=== PATIENT | female | born 1960 | race Caucasian/White ===

== ENCOUNTER → 2016-08-01 | Outpatient (CLI) | payer BC ==
--- NOTE | 2016-08-02 07:48 | MM ---
Reason for exam: screening (asymptomatic). Last mammogram was performed 1 year and 9 months ago. History: Patient is postmenopausal. Family history of breast cancer in aunt. Benign stereotactic core biopsy of the left breast, January 15, 2003. Core biopsy of the left breast. Physical Findings: A clinical breast exam by your physician is recommended on an annual basis and results should be correlated with mammographic findings. MG Screening Mammo w CAD Bilateral CC and MLO view(s) were taken. XCCL view(s) were taken of the right breast. Prior study comparison: November 05, 2014, bilateral MG screening mammo w CAD. April 17, 2012, bilateral digital screening mammo w/CAD. There are scattered fibroglandular densities. There is no discrete abnormality. No significant changes when compared with prior studies. ASSESSMENT: Negative, BI-RAD 1 RECOMMENDATION: Routine screening mammogram of both breasts in 1 year.
== END | disposition home or self-care (01) ==
LOC: RADMAMWWP 06:48
PROVIDERS: ATTEND Internal Medicine
DX: Z12.31 Encounter for screening mammogram for malignant neoplasm of breast (principal)

== ENCOUNTER → 2017-06-08 | Outpatient (CLI) | payer BC ==
--- NOTE | 2017-06-08 15:07 | US ---
EXAMINATION TYPE: US venous doppler duplex LE LT DATE OF EXAM: 06/08/2017 2:49 PM COMPARISON: NONE CLINICAL HISTORY: Swelling of lower leg R22.42. h/o DVT within left leg 4 years ago along with PE's, no SOB or chest pain today, swelling in left leg, started thinners last night per her physician SIDE PERFORMED: Left TECHNIQUE: The lower extremity deep venous system is examined utilizing real time linear array sonog joaquina with graded compression, doppler sonography and color-flow sonography. VESSELS IMAGED: External Iliac Vein (EIV) Common Femoral Vein Deep Femoral Vein Greater Saphenous Vein * Femoral Vein Popliteal Vein Small Saphenous Vein * Proximal Calf Veins (* superficial vessels) Left Leg: Appearance of chronic thrombus within not fully compressible femoral, popiteal vein and si ngle proximal calf vein, internal echos seen with thready flow within [place] femoral vein and god col or fill within popiteal vein tech impression given to Dr Patel IMPRESSION: Incompletely occlusive thrombi within the femoral, popliteal, and proximal calf veins of the left lower extremity are seen suggestive of chronic renal organizing thrombus in this patient wi th a history of left lower extremity thrombus.
== END | disposition home or self-care (01) ==
LOC: RADUSWWP 14:17
PROVIDERS: ATTEND Internal Medicine
DX: I82.432 Acute embolism and thrombosis of left popliteal vein (principal); I82.412 Acute embolism and thrombosis of left femoral vein; I82.492 Acute embolism and thrombosis of other specified deep vein of left lower extremity

== ENCOUNTER 2018-03-06 11:06 | Day surgery (SDC) | payer BC ==
--- NOTE | 2018-03-06 08:36 | P.GSHP ---
History of Present Illness H&P Date: 03/06/18 CHIEF COMPLAINT: GERD and colon screen HISTORY OF PRESENT ILLNESS: The patient is a 57-year-old female who presents with gastroesophageal reflux disease and need for colon screen. Upper and lower endoscopy were offered for further evaluation and management. PAST MEDICAL HISTORY: Please see list. PAST SURGICAL HISTORY: Please see list. MEDICATIONS: Please see list. ALLERGIES: Please see list. SOCIAL HISTORY: No illicit drug use FAMILY HISTORY: No reports of Crohn disease or ulcerative colitis. REVIEW OF ORGAN SYSTEMS: CONSTITUTIONAL: No reports of fevers or chills. GI: Denies any blood in stools or constipation. PHYSICAL EXAM: VITAL SIGNS: Stable GENERAL: Well-developed pleasant in no acute distress. HEENT: No scleral icterus. Extraocular movements grossly intact. Moist buccal mucosa. NECK: Supple without lymphadenopathy. CHEST: Unlabored respirations. Equal bilateral excursions. CARDIOVASCULAR: Regular rate and rhythm. Distal 2+ pulses. ABDOMEN: Soft, nondistended. MUSCULOSKELETAL: No clubbing, cyanosis, or edema. ASSESSMENT: 1. Gastroesophageal reflux disease 2. Colon screen. PLAN: 1. Recommend proceeding with an upper and lower endoscopy Past Medical History Past Medical History: Deep Vein Thrombosis (DVT), GERD/Reflux, Pulmonary Embolus (PE) Additional Past Medical History / Comment(s): DVT LT KNEE, AND PE 02/2013. VARICOSE VEINS. EDEMA LT LEG. SINUS INFECTIONS, POLYPS. History of Any Multi-Drug Resistant Organisms: None Reported Past Surgical History: Bariatric Surgery, Cholecystectomy, Hernia Repair, Tubal Ligation Additional Past Surgical History / Comment(s): VARICOSE VEINS STRIPPED. 2012 GASTRIC SLEEVE (CURRENT SURGEON DR. BROCK) Past Anesthesia/Blood Transfusion Reactions: Previous Problems w/ Anesthesia Additional Past Anesthesia/Blood Transfusion Reaction / Comment(s): HX WAKING UP IN SURGERY. Past Psychological History: No Psychological Hx Reported Smoking Status: Never smoker Past Alcohol Use History: None Reported Past Drug Use History: None Reported - Past Family History Sister(s) Family Medical History: Cancer, Deep Vein Thrombosis (DVT) Brother(s) Family Medical History: Cancer Medications and Allergies Home Medications Medication Instructions Recorded Confirmed Type Biotin 5,000 mg PO DAILY 04/07/15 02/20/18 History Cholecalciferol [Vitamin D3] 2,000 unit PO DAILY 08/08/15 02/20/18 History Cinnamon Bark [Cinnamon] 500 mg PO DAILY 08/08/15 02/20/18 History Dexlansoprazole [Dexilant] 60 mg PO DAILY 08/08/15 02/20/18 History L.acidoph,Paracasei, B.lactis 1 cap PO DAILY 08/08/15 02/20/18 History [Probiotic] Allergies Allergy/AdvReac Type Severity Reaction Status Date / Time clarithromycin [From Biaxin] Allergy Rash/Hives Verified 02/20/18 17:50 daptomycin Allergy MUSCLES Verified 02/20/18 17:50 "CURLED UP" Sulfa (Sulfonamide Allergy Rash/Hives Verified 02/20/18 17:50 Antibiotics) ciprofloxacin [From Cipro] AdvReac Unknown Verified 02/20/18 17:50 ciprofloxacin HCl AdvReac Unknown Verified 02/20/18 17:50 [From Cipro]
[2018-03-06 12:07] VITALS: RESP 16; TEMP 97.6
[2018-03-06 12:14] VITALS: BMI 40.7
[2018-03-06] MEDS ORDERED: LACTATED RINGERS 1,000 ML IV ONE (13:22)
[2018-03-06] MEDS ORDERED: LIDOCAINE 1% 20 ML VIAL (10MG/ML) FOR IV START INTRADERMA ONE (13:23)
[2018-03-06] MEDS ORDERED: LIDOCAINE 1% INJ 10MG/ML (20 ML MDV) ONE (13:26)
[2018-03-06] MEDS ORDERED: PROPOFOL 10 MG/ML 20 ML VIAL IV ONE (13:26)
--- NOTE | 2018-03-06 13:42 | P.PCN ---
Date of Procedure: 03/06/18 Description of Procedure: PREOPERATIVE DIAGNOSIS: Status post sleeve gastrectomy. Gastroesophageal reflux disease. Epigastric abdominal pain. Personal history of H. pylori gastritis POSTOPERATIVE DIAGNOSIS: Status post sleeve gastrectomy. Gastroesophageal reflux disease. Epigastric abdominal pain. Personal history of H. pylori gastritis Diaphragmatic hiatal hernia without obstruction. Chronic superficial gastritis. OPERATION: Esophagogastroduodenoscopy with cold forceps biopsies along the antrum. SURGEON: Yenifer Maurer MD ANESTHESIA: MAC. INDICATIONS: The patient is a 57-year-old female who presents with a history of sleeve gastrectomy with abdominal pain. benefits and risks of the procedure were described. Informed consent was obtained. DESCRIPTION: The patient was brought into the endoscopy suite and laid in the left lateral decubitus position. An Olympus gastroscope was passed along the posterior oropharynx down to the distal esophagus where the squamocolumnar junction was at 33 centimeters from the incisors remarkable for chronic erosive esophagitis, LA grade A without ulceration. The stomach was entered where she had a 3-cm hiatal hernia with a diaphragmatic hiatus found at 35 cm. The sleeve reservoir was not enlarged prohibiting retroflexion of the scope. Tertiary contractions were from the esophagus. Encroachment along the angularis incisura was confirmed. Chronic gastritis was found along the antrum with cold biopsies obtained. The first through third portion of the duodenum was examined and unremarkable. The stomach was desufflated. The patient tolerated the procedure well. FINDINGS: No acute ulceration found along her sleeve. Encroachment along angularis incisura confirmed with mild deformity of sleeve gastrectomy Squamocolumnar junction at 33 cm from the incisors. Diaphragmatic hiatus at 35 cm. Gastric reservoir within normal limits. Hiatal hernia 2 cm, fixed. LA grade A erosive esophagitis. No active duodenitis. Chronic gastritis. RECOMMENDATIONS: Upper endoscopy as needed. May benefit from antireflux operation.
--- NOTE | 2018-03-06 13:55 | P.PCN ---
Date of Procedure: 03/06/18 Description of Procedure: PREOPERATIVE DIAGNOSIS: Colonoscopy screening. History of Hemoccult positive stools POSTOPERATIVE DIAGNOSIS: Colonoscopy screening. History of Hemoccult positive stools Sigmoid diverticulosis. External hemorrhoids OPERATION: Colonoscopy to the ileocecal valve and appendiceal orifice. SURGEON: Yenifer Maurer MD. ANESTHESIA: MAC. INDICATIONS: The patient is a 57-year-old female who presents for colonoscopy screening. Benefits and risks were described and informed consent was obtained. DESCRIPTION OF PROCEDURE: The patient had undergone Gatorade, MiraLAX and Dulcolax prep. She had been brought into the operating room and laid in the left lateral decubitus position. After adequate intravenous sedation, the rectum was examined with 2% lidocaine jelly. No external hemorrhoids were encountered. The rectal tone was within normal limits. No lesions were palpated in the rectal vault. An Olympus colonoscope was advanced until the ileocecal valve and appendiceal orifice were clearly viewed. The prep was poor with retained solid stools from diverticulosis. Moderate sigmoid diverticulosis was encountered. No colonic polyps were found. No evidence of focal colitis was found. Retroflexion of the scope demonstrated grade 1 internal hemorrhoids without active bleeding or inflammation. The colon was desufflated. The patient had tolerated the procedure well. Withdrawal time was over 6 minutes. FINDINGS: Internal hemorrhoids, grade 1 External prolapsed hemorrhoids, grade 2 No arteriovenous malformations. No adenomatous polyps. Poor colonic prep Sigmoid diverticulosis No focal colitis. RECOMMENDATIONS: Lower endoscopy in 5 years, 2022 Plan - Discharge Summary New Discharge Prescriptions: No Action Biotin 5,000 mg PO DAILY Dexlansoprazole [Dexilant] 60 mg PO DAILY Cholecalciferol [Vitamin D3] 2,000 unit PO DAILY L.acidoph,Paracasei, B.lactis [Probiotic] 1 cap PO DAILY Discharge Medication List Biotin 5,000 mg PO DAILY 04/07/15 [History] Cholecalciferol [Vitamin D3] 2,000 unit PO DAILY 08/08/15 [History] Dexlansoprazole [Dexilant] 60 mg PO DAILY 08/08/15 [History] L.acidoph,Paracasei, B.lactis [Probiotic] 1 cap PO DAILY 08/08/15 [History]
[2018-03-06] MEDS ORDERED: LACTATED RINGERS 1,000 ML IV SCH (14:01)
[2018-03-06 14:13] VITALS: BP 119/68; PULSE 78
== END 2018-03-06 14:45 | disposition home or self-care (01) ==
LOC: ORWHC2ENDO 11:06
PROVIDERS: ATTEND Surgery Plastic and Reconstructive Surgery
DX: Z12.11 Encounter for screening for malignant neoplasm of colon (principal); K29.50 Unspecified chronic gastritis without bleeding; K57.30 Diverticulosis of large intestine without perforation or abscess without bleeding; K22.10 Ulcer of esophagus without bleeding; K21.9 Gastro-esophageal reflux disease without esophagitis; K44.9 Diaphragmatic hernia without obstruction or gangrene; K64.0 First degree hemorrhoids; Z98.84 Bariatric surgery status; K64.1 Second degree hemorrhoids; Z86.718 Personal history of other venous thrombosis and embolism; Z86.711 Personal history of pulmonary embolism; Z79.899 Other long term (current) drug therapy; Z88.1 Allergy status to other antibiotic agents; Z88.2 Allergy status to sulfonamides
CPT/HCPCS: 88305; 43239; J2001; J2704; G0121; 45378

== ENCOUNTER → 2018-04-24 | Outpatient (CLI) | payer BC ==
[2018-04-24 17:44] VITALS: BP 138/85; PULSE 58; RESP 16; TEMP 97.7; BMI 40.3
--- NOTE | 2018-04-24 17:52 | P.PN ---
Subjective Progress Note Date: 04/24/18 HPI: Complication from sleeve with leak. She had at EGD showing distortion of sleeve. ABDOMEN: Soft peritinotis. PLAN: 1. EGD reviewed 2. Labs reviewed 3. Need CT scan for distortion of anatomy, complications of sleeve and left upper quadrant Objective - Vital Signs Vital signs: Vital Signs Temp 97.7 F 04/24/18 17:41 Pulse 58 L 04/24/18 17:41 Resp 16 04/24/18 17:41 BP 138/85 04/24/18 17:41 Pulse Ox Intake & Output 04/23/18 04/24/18 04/24/18 18:59 06:59 18:59 Weight 113.398 kg
== END | disposition home or self-care (01) ==
LOC: BARWHC3 15:54
PROVIDERS: ATTEND Surgery Plastic and Reconstructive Surgery
DX: K95.89 Other complications of other bariatric procedure (principal); K65.9 Peritonitis, unspecified; Z98.84 Bariatric surgery status
CPT/HCPCS: 99211

== ENCOUNTER → 2018-05-08 | Outpatient (CLI) | payer BC ==
--- NOTE | 2018-05-09 08:19 | CT ---
EXAMINATION TYPE: CT abdomen pelvis w con DATE OF EXAM: 05/08/2018 HISTORY: Abdominal pain with nausea. Abnormal EGD. Diverticulosis of the large intestine. CT DLP: 1697mGycm Automated Exposure Control for Dose Reduction was Utilized. CONTRAST: CT scan of the abdomen and pelvis is performed with IV Contrast, patient injected with 100 mL of Isov ue 300. Patient was unable to complete the entirety of the proximal due to gastric sleeve COMPARISON: 11/14/2012. FINDINGS: LUNG BASES: No significant abnormality is appreciated. LIVER/GB: Hepatic parenchyma is diffusely hypoattenuated in comparison to that of the spleen, most co mmonly seen in hepatic steatosis. This finding limits evaluation for hepatic masses. No gross evidenc e of hepatic mass is seen. No intrahepatic biliary ductal dilatation. Gallbladder surgically absent. PANCREAS: There is mild pancreatic parenchymal atrophy without ductal dilatation. SPLEEN: No significant abnormality is seen. ADRENALS: No significant abnormality is seen. KIDNEYS: No significant abnormality is seen. BOWEL: Gastric sleeve has been performed. No extravasation is seen. Moderate hiatal hernia is present . Numerous colonic diverticuli are seen predominating within the sigmoid colon. No dilated large or s mall bowel is noted. Oral contrast does not extend to the colon, limiting evaluation. UTERUS/ADNEXA: No gross abnormality seen. LYMPH NODES: No greater than 1cm abdominal or pelvic lymph nodes are appreciated. However, there is a prominent 8 mm aortocaval lymph node on series 3 image 48. This lymph node is overall similar to the exam of 11/14/2012 and therefore favored to be benign. OSSEOUS STRUCTURES: Moderate multilevel degenerative changes of the spine are seen. Complete interver tebral disc space loss is seen at L2-L3. OTHER: There is a small amount of air seen within the urinary bladder. This could relate to recent in strumentation, cystitis, or fistula. No gross evidence of colovesical fistula is seen on today's exam ination. There is a small fat filled umbilical hernia present. IMPRESSION: 1. Air within the urinary bladder that could relate to urinary tract infection (correlation with urin alysis is recommended), recent instrumentation (correlate with any recent Baxter catheter placement), or fistula although no gross evidence of colovesicular fistula seen on today's examination. 2. Numerous colonic diverticula without pericolonic fat stranding. 3. Postsurgical changes of sleeve gastrectomy with moderate hiatal hernia. 4. Hepatic steatosis.
== END | disposition home or self-care (01) ==
LOC: RADCTMAIN 15:29
PROVIDERS: ATTEND Surgery Plastic and Reconstructive Surgery
DX: K57.30 Diverticulosis of large intestine without perforation or abscess without bleeding (principal); K44.9 Diaphragmatic hernia without obstruction or gangrene; K76.0 Fatty (change of) liver, not elsewhere classified; Z98.84 Bariatric surgery status
CPT/HCPCS: 74177; Q9967

== ENCOUNTER → 2018-05-22 | Outpatient (CLI) | payer BC ==
[2018-05-22 12:24] VITALS: BP 127/80; PULSE 64; RESP 16; TEMP 97.8; BMI 40.5
--- NOTE | 2018-05-22 12:35 | P.PN ---
Subjective Progress Note Date: 05/22/18 DATE OF SERVICE: 05/22/2018 CHIEF COMPLAINT: Complications from sleeve gastrectomy HISTORY OF PRESENT ILLNESS: Radha Espinal is a 57-year-old female who comes with previous history of sleeve gastrectomy. She has history of complication from sleeve with leak. She was placed on medications for her reflux disease and at this time is responding well. She reports severe gastroesophageal reflux disease and wants to feel well again. Her highest weight was 307 pounds. Her lowest weight was 215 pounds. Today she comes in weighing 250 pounds from 249 pounds, 1 months ago. She has 1 pound weight gain in 1 month. At height of 5 feet 6 inches, her ideal body weight is 154 pounds. Her highest weight was 307 pounds. Her body mass index highest was 49.7. Today her BMI is 40.5. Lifetime weight loss is 57 pounds. Percent excess weight loss is 37% PAST MEDICAL HISTORY: 1. Morbid obesity due to excess calories 2. Body mass index of 49.7, initial 3. Osteoarthritis of the knees. 4. Gastroesophageal reflux disease 5. Osteoarthritis of the lower back. 6. Hypertensive heart disease. PAST SURGICAL HISTORY: 1. Sleeve gastrectomy 2. Tubal ligation 3. Cholecystectomy 5. Varicose vein stripping HOME MEDICATIONS: ALLERGIES: Medications and Allergies Home Medications Medication Instructions Recorded Confirmed Type Biotin 5,000 mg PO DAILY 04/07/15 02/20/18 History Cholecalciferol [Vitamin D3] 2,000 unit PO DAILY 08/08/15 02/20/18 History Cinnamon Bark [Cinnamon] 500 mg PO DAILY 08/08/15 02/20/18 History Dexlansoprazole [Dexilant] 60 mg PO DAILY 08/08/15 02/20/18 History L.acidoph,Paracasei, B.lactis 1 cap PO DAILY 08/08/15 02/20/18 History [Probiotic] Allergies Allergy/AdvReac Type Severity Reaction Status Date / Time clarithromycin [From Biaxin] Allergy Rash/Hives Verified 02/20/18 17:50 daptomycin Allergy MUSCLES Verified 02/20/18 17:50 "CURLED UP" Sulfa (Sulfonamide Allergy Rash/Hives Verified 02/20/18 17:50 Antibiotics) ciprofloxacin [From Cipro] AdvReac Unknown Verified 02/20/18 17:50 ciprofloxacin HCl AdvReac Unknown Verified 02/20/18 17:50 [From Cipro] SOCIAL HISTORY: No past tobacco use. FAMILY HISTORY: No family history of ulcerative colitis disease or Crohn's disease. Family history of morbid obesity. No lupus in the family. No reports of stomach or esophageal cancer. Her grandfather had colon cancer. REVIEW OF ORGAN SYSTEMS: CONSTITUTIONAL: At height of 5 feet 6 inches, her ideal body weight is 154 pounds. Her highest weight was 307 pounds. Her body mass index highest was 49.7. HEENT: Denies any active troubles with vision or hearing. No troubles with swallowing. ENDOCRINE: No diabetes. No hypothyroidism. CARDIOVASCULAR: No reports of palpitations or heart attacks or chest pain. RESPIRATORY: Past history of pulmonary embolism including DVT GI: Denies any bright red blood per rectum. No diarrhea. Has GERD. MUSCULOSKELETAL: Has lower back pain and joint pain. Has osteoarthritis of the knees. History of bilateral lower extremity edema. NEURO: No headaches. No seizure disorders. PSYCH: No depression. No suicidal ideation. RHEUMATOLOGIC: No lupus. No rheumatoid arthritis. HEMATOLOGIC: Denies any abnormal bleeding or bruising. Has personal history of DVTs. SKIN: No rash. No skin cancer. PHYSICAL EXAM: VITAL SIGNS: Height 5 foot 6 inches, weight 250 pounds. BMI 40.5 Vital Signs Temp 97.8 F 05/22/18 12:19 Pulse 64 05/22/18 12:19 Resp 16 05/22/18 12:19 BP 127/80 05/22/18 12:19 Pulse Ox Intake & Output 05/22/18 05/23/18 05/23/18 18:59 06:59 18:59 Weight 113.852 kg GENERAL: Well-developed in no acute distress. HEENT: No scleral icterus. Extraocular movements grossly intact. Hears conversational speech. No nasal drainage. NECK: Supple without lymphadenopathy. CHEST: Nonlabored respirations with equal bilateral excursions. CARDIOVASCULAR: Regular rate and regular rhythm. Distal 2+ pulses. ABDOMEN: Soft and without peritinotis. MUSCULOSKELETAL: No clubbing, cyanosis. Gross strength 5/5 distal lower extremities. NEURO: No focal or lateralizing signs. Cranial nerves 2 through 12 grossly within normal limits. PSYCH: Appropriate affect. Alert and oriented to person, place and time. SKIN: Good skin turgor. Well perfused. STUDIES: CT of the abdomen and pelvis reviewed with imaging the confirms incarcerated hiatal hernia alongside sleeve gastrectomy LABS: Reviewed showing low Zinc, Vitamin D. ASSESSMENT: 1. Morbid obesity due to excess calories 2. Body mass index of 49.7, initial to 40.4 3. Osteoarthritis of the knees. 4. Gastroesophageal reflux disease 5. Osteoarthritis of the lower back. 6. Hypertensive heart disease. 7. Complications of sleeve gastrectomy 8. Epigastric abdominal pain 9. Left upper quadrant abdominal pain. 10. Hiatal hernia 11. History of blood clots 12. Zinc deficiency 13. Vitamin D deficiency PLAN: 1. She has moderate scarring and for any future surgeries, she will need extensive lysis of adhesions. 2. Recommend hiatal hernia repair for symptomatic and severe gastroesophageal reflux disease. 3. She is intermediate to high risk of complications from past history of intra- abdomnial sepsis, multiple abdominal surgeries, and previous history of DVTs 4. Will need DVT prophylaxis. 5. Antibiotic prophylaxis. 6. Two week high protein low carb diet to address hepatomegaly. 7. In the interim, continue medications for gastroesophageal reflux disease. Objective - Vital Signs Vital signs: Vital Signs Temp 97.8 F 05/22/18 12:19 Pulse 64 05/22/18 12:19 Resp 16 05/22/18 12:19 BP 127/80 05/22/18 12:19 Pulse Ox Intake & Output 05/21/18 05/22/18 05/22/18 18:59 06:59 18:59 Weight 113.852 kg
== END | disposition home or self-care (01) ==
LOC: BARWHC3 11:26
PROVIDERS: ATTEND Surgery Plastic and Reconstructive Surgery
DX: K95.89 Other complications of other bariatric procedure (principal); K21.9 Gastro-esophageal reflux disease without esophagitis; E66.01 Morbid (severe) obesity due to excess calories; M17.0 Bilateral primary osteoarthritis of knee; M47.9 Spondylosis, unspecified; I11.9 Hypertensive heart disease without heart failure; R10.12 Left upper quadrant pain; K44.9 Diaphragmatic hernia without obstruction or gangrene; E60 Dietary zinc deficiency; E55.9 Vitamin D deficiency, unspecified; Z98.84 Bariatric surgery status; Z90.49 Acquired absence of other specified parts of digestive tract; Z86.718 Personal history of other venous thrombosis and embolism; Z98.51 Tubal ligation status; Z68.41 Body mass index [BMI] 40.0-44.9, adult; Z79.899 Other long term (current) drug therapy; Z88.1 Allergy status to other antibiotic agents; Z88.2 Allergy status to sulfonamides
CPT/HCPCS: 99211

== ENCOUNTER → 2018-06-03 | Outpatient (CLI) | payer BC ==
[2018-06-03 12:06] VITALS: BMI 40.4
== END ==
LOC: BARWHC3 08:50
PROVIDERS: ATTEND Surgery Plastic and Reconstructive Surgery
DX: E66.01 Morbid (severe) obesity due to excess calories (principal); Z68.41 Body mass index [BMI] 40.0-44.9, adult
CPT/HCPCS: 97804

== ENCOUNTER → 2018-07-04 | Outpatient (CLI) | payer BC ==
[2018-07-04 08:59] LABS: Basophils % (A) 1 %; Eosinophils # (A) 0.1 k/uL (0-0.7); Eosinophils % (A) 2 %; HCT 37.4 % (34.0-46.0); HGB 11.7 gm/dL (11.4-16.0); Lymphocytes # (A) 0.6 k/uL (1.0-4.8); Lymphocytes % (A) 18 %; MCH 27.4 pg (25.0-35.0); MCHC 31.3 g/dL (31.0-37.0); MCV 87.5 fL (80.0-100.0); Mean Platelet Volume 7.2; Monocytes # (A) 0.3 k/uL (0-1.0); Monocytes % (A) 7 %; Neutrophils # (A) 2.4 k/uL (1.3-7.7); Neutrophils % (A) 70 %; Platelet Count 201 k/uL (150-450); RBC 4.28 m/uL (3.80-5.40); RDW 14.2 % (11.5-15.5); WBC 3.5 k/uL (3.8-10.6)
[2018-07-04 09:01] LABS: ALT 28 U/L (9-52); AST 32 U/L (14-36); Albumin 4.2 g/dL (3.5-5.0); Alkaline Phosphatase 74 U/L (38-126); Anion Gap 9 mmol/L; Blood Urea Nitrogen 29 mg/dL (7-17); Calcium 9.5 mg/dL (8.4-10.2); Carbon Dioxide 26 mmol/L (22-30); Chloride 106 mmol/L (98-107); Glucose 85 mg/dL (74-99); Potassium 4.1 mmol/L (3.5-5.1); Sodium 141 mmol/L (137-145); Total Bilirubin 0.7 mg/dL (0.2-1.3); Total Protein 7.2 g/dL (6.3-8.2)
== END | disposition home or self-care (01) ==
LOC: LABPAT 08:11
PROVIDERS: ATTEND Surgery Plastic and Reconstructive Surgery
DX: Z01.818 Encounter for other preprocedural examination (principal); Z01.812 Encounter for preprocedural laboratory examination
CPT/HCPCS: 36415; 80053; 85025; 86850; 86900; 86901; 93005

== ENCOUNTER 2018-07-15 07:42 | Inpatient (IN) | payer BC ==
--- NOTE | 2018-07-15 06:30 | P.GSHP ---
History of Present Illness H&P Date: 07/15/18 CHIEF COMPLAINT: Paraesophageal hiatal hernia with gastroesophageal reflux disease. HISTORY OF PRESENT ILLNESS: The patient is a 57-year-old female who presents with paraesophageal hiatal hernia. She has completed an esophageal manometry including upper endoscopy workup. Now she presents for surgical intervention. PAST MEDICAL HISTORY: Please see list. PAST SURGICAL HISTORY: Please see list. MEDICATIONS: Please see list. ALLERGIES: Please see list. SOCIAL HISTORY: No illicit drug use FAMILY HISTORY: No reports of Crohn disease or ulcerative colitis. REVIEW OF ORGAN SYSTEMS: CONSTITUTIONAL: No reports of fevers or chills. GI: Denies any blood in stools or constipation. PHYSICAL EXAM: VITAL SIGNS: Stable GENERAL: Well-developed pleasant and in no acute distress. HEENT: No scleral icterus. Extraocular movements grossly intact. Moist buccal mucosa. NECK: Supple without lymphadenopathy. CHEST: Unlabored respirations. Equal bilateral excursions. CARDIOVASCULAR: Regular rate and rhythm. Distal 2+ pulses. ABDOMEN: Soft, nondistended. No peritoneal signs. MUSCULOSKELETAL: No clubbing, cyanosis, or edema. SKIN: Well-perfused. Good skin turgor. MANOMETRY: Shows no evidence of achalasia or scleroderma. ASSESSMENT: 1. Diaphragmatic paraesophageal hiatal hernia with severe gastroesophageal reflux disease. PLAN: 1. Recommend proceeding with a robotic paraesophageal hiatal hernia with possible mesh. 2. Benefits and risks of surgical intervention was discussed including possibility of open technique. 3. Inpatient hospitalization recommended of 2 nights 4. DVT prophylaxis. 5. Antibiotic prophylaxis. Past Medical History Past Medical History: Deep Vein Thrombosis (DVT), GERD/Reflux, Pulmonary Embolus (PE) Additional Past Medical History / Comment(s): DVT LT KNEE, AND PE 02/2013. VARICOSE VEINS. EDEMA LT LEG. SINUS INFECTIONS, POLYPS. History of Any Multi-Drug Resistant Organisms: None Reported Past Surgical History: Bariatric Surgery, Cholecystectomy, Hernia Repair, Tubal Ligation Additional Past Surgical History / Comment(s): VARICOSE VEINS STRIPPED. 2012 GASTRIC SLEEVE (CURRENT SURGEON DR. BROCK) Past Anesthesia/Blood Transfusion Reactions: Previous Problems w/ Anesthesia Additional Past Anesthesia/Blood Transfusion Reaction / Comment(s): HX WAKING UP IN SURGERY. Smoking Status: Never smoker - Past Family History Sister(s) Family Medical History: Cancer, Deep Vein Thrombosis (DVT) Brother(s) Family Medical History: Cancer Medications and Allergies Home Medications Medication Instructions Recorded Confirmed Type Biotin 5,000 mg PO DAILY 04/07/15 06/04/18 History Cholecalciferol [Vitamin D3] 2,000 unit PO DAILY 08/08/15 06/04/18 History Dexlansoprazole [Dexilant] 60 mg PO DAILY 08/08/15 06/04/18 History L.acidoph,Paracasei, B.lactis 1 cap PO DAILY 08/08/15 06/04/18 History [Probiotic] Cyanocobalamin [Vitamin B-12 1,000 mg IM DIRECTED 04/26/18 06/04/18 History Injection] Turmeric Root Extract [Turmeric] 500 mg PO DAILY 04/26/18 06/04/18 History Vits A,C,E/Lutein/Minerals 1 each PO DAILY 04/26/18 06/04/18 History [Ocuvite with Lutein Tablet] Zinc 50 mg PO DAILY 04/26/18 06/04/18 History Cephalexin [Keflex] 500 mg PO Q6HR 05/22/18 06/04/18 History Allergies Allergy/AdvReac Type Severity Reaction Status Date / Time clarithromycin [From Biaxin] Allergy Rash/Hives Verified 07/08/18 12:17 daptomycin Allergy MUSCLES Verified 07/08/18 12:17 "CURLED UP" Sulfa (Sulfonamide Allergy Rash/Hives Verified 07/08/18 12:17 Antibiotics)
[~2018-07-15 07:42] MED LIST: CHLORHEXIDINE GLUCONATE 15 ML CUP MUCOUS MEM ONE; DEXAMETHASONE SOD PHOSPHATE 10 MG/ML 1 ML VIAL IV ONE; ENOXAPARIN 40 MG/0.4 ML SYRINGE SQ STA; MIDAZOLAM (PF) 2 MG/2 ML VIAL IV PRN; ONDANSETRON 4 MG/2 ML VIAL IVP ONE; PANTOPRAZOLE 40 MG/10 ML VIAL IV STA; SCOPOLAMINE 1.5MG/72HR PATCH TRANSDERM ONE; ceFAZolin IN SWFI 2 GM/20 ML SYRINGE IVP ONE
[2018-07-15] MEDS ORDERED: LACTATED RINGERS 1,000 ML IV ONE ×3 (08:05→11:53)
[2018-07-15] MEDS ORDERED: LIDOCAINE 1% 20 ML VIAL (10MG/ML) FOR IV START INTRADERMA ONE (08:07)
[2018-07-15] MEDS ORDERED: NEOSTIGMINE 1 MG/ML 10 ML VIAL ONE (08:16)
[2018-07-15] MEDS ORDERED: PHENYLEPHRINE-0.9% NACL SYG 1 MG/10 ML SYRINGE ONE (08:16)
[2018-07-15] MEDS ORDERED: MIDAZOLAM 2 MG/2 ML VIAL ONE (08:16)
[2018-07-15] MEDS ORDERED: fentaNYL (PF) 50 MCG/ML 2 ML AMP ONE (08:16)
[2018-07-15] MEDS ORDERED: GLYCOPYRROLATE 0.2 MG/ML 2 ML VIAL ONE (08:16)
[2018-07-15] MEDS ORDERED: KETAMINE 10 MG/ML 20 ML VIAL ONE (08:16)
[2018-07-15] MEDS ORDERED: SUCCINYLCHOLINE CHLORIDE VIAL 200 MG/10 ML VIAL IV ONE (08:16)
[2018-07-15] MEDS ORDERED: LIDOCAINE 1% INJ 10MG/ML (20 ML MDV) ONE (08:16)
[2018-07-15] MEDS ORDERED: ROCURONIUM BROMIDE 10 MG/ML 10 ML VIAL IV ONE (08:16)
[2018-07-15] MEDS ORDERED: PROPOFOL 10 MG/ML 20 ML VIAL IV ONE (08:16)
[2018-07-15] MEDS ORDERED: BUPIVACAIN-EPI 0.5%-1:200,000 30 ML VIAL SQ ONE (09:00)
[2018-07-15] MEDS ORDERED: NALOXONE 0.4 MG/ML 1 ML VIAL IV PRN (12:11)
[2018-07-15] MEDS ORDERED: HYDROmorphone 1 MG/ML 1 ML SYRINGE IVP PRN (12:11)
[2018-07-15] MEDS ORDERED: diphenhydrAMINE 50 MG/ML 1 ML VIAL IVP PRN (12:11)
[2018-07-15] MEDS: HYDROmorphone 0.5 MG/0.5 ML SYRINGE IVP PRN ×2 (12:42→12:55)
--- NOTE | 2018-07-15 12:43 | P.OP ---
Date of Procedure: 07/15/18 Description of Procedure: DESCRIPTION OF PROCEDURE(S): SURGEON: FREDERICK BROCK MD SMALL BUSINESS CONSULTANT: CAMILLE BELL PREOPERATIVE DIAGNOSES: 1. Gastroesophageal reflux disease, severe with erosive esophagitis 2. Paraesophageal hiatal hernia, midline. 3. Morbid obesity due to excess calories, BMI of 40.3. 4. History of sleeve gastrectomy 5. Epigastric abdominal pain. 6. History of pulmonary embolism 7. History of deep venous thrombosis POSTOPERATIVE DIAGNOSES: 1. Gastroesophageal reflux disease, severe with erosive esophagitis 2. Paraesophageal hiatal hernia, midline, incarcerated and recurrent, 6 x 4 cm, type III 3. Morbid obesity due to excess calories, BMI of 40.3. 4. History of sleeve gastrectomy 5. Epigastric abdominal pain. 6. History of pulmonary embolism 7. History of deep venous thrombosis 8. Severe intra-abdominal peritoneal adhesions of omentum to epigastric abdo neptali wall, sleeve gastrectomy to the liver 9. Umbilical ventral hernia without incarceration, initial OPERATION: 1. Robotic-assisted da Nigel Xi laparoscopic reduction and repair of recurrent incarcerated paraesophageal hiatal hernia, 6 x 4 cm, with Roberts Biopatch A 8 x 8 cm. 2. Robotic-assisted da Nigel Xi laparoscopic extensive lysis of adhesions over 1 hour 45 minutes 3. Intraoperative esophagogastroscopy ANESTHESIA: General with local anesthetic. ESTIMATED BLOOD LOSS: 20 mL Pathology: None COMPLICATIONS: None. FINDINGS: 1. Thoracic length 20 cm. 2. Port placed 15 cm distal. 3. Incarcerated upper pole of the stomach within the mediastinum with moderate dissection performed with resection of mediastinal hernia sac, type III paraesophageal hiatal hernia 4. 6 cm paraesophageal incarcerated diaphragmatic hiatal hernia with moderate dissection into the mediastinum. 5. Roberts Biopatch A onlay mesh placed. 6. Identified previous hiatal hernia repair with retained suture consistent with recurrent incarcerated hiatal hernia 7. Reduction of incarcerated 4 cm superior pole of stomach from previously gastrectomy 8. Confirmed pre-existing gastric stenosis along sleeve gastrectomy and angularis incisura 9. GE junction at 35 cm from the incisors 10. Intra-abdominal esophageal length over 2 cm obtained 11. Severe intra-abdominal peritoneal adhesions of greater omentum and lesser omentum to abdominal wall including sleeve gastrectomy adherent to the undersurface of the liver adding additional complexity to the case over 1 hour 45 minutes INDICATIONS: The patient is a 57-year-old female who presents with epigastric abdominal pain, history of sleeve gastrectomy with prior sequelae of leak resolved now resolved over 5 years ago and gastroesophageal reflux recalcitrant to medical therapy with a symptomatic diaphragmatic hiatal hernia. Preoperative workup including upper endoscopy demonstrated hiatal hernia with erosive esophagitis. Given the severity of her symptoms, she had elected for surgical intervention. Benefits and risks including bleeding, infection, recurrence, dysphagia, injury to the lung, need for further surgery was described at length. Informed consent was obtained. DESCRIPTION: The patient was brought into the operating room and placed in supine position. Preoperatively she had received Lovenox subcutaneously for DVT prophylaxis. After general induction, the abdomen was prepped and draped in standard sterile fashion. The patient had previously voided prior to coming to the operating room. Ioban draping was placed along the abdomen. A timeout protocol was confirmed with the surgical team, for which the patient's name, procedure to be performed including DVT prophylaxis with bilateral SCDs, and preoperative antibiotics were also confirmed. A robotic da Nigel Xi system was prepped and primed. At 15 cm from the xiphoid to just below the umbilicus, proposed port sites were marked with indelible marker along the left axillary line, left mid-clavicular line with each ports were marked 10 cm from each other. A 5 mm 0 degrees laparoscopic trocar entry was performed along the left upper quadrant. The abdomen was insufflated to 15 mmHg pressure was tolerated well. Diagnostic laparoscopy demonstrated no injury to bowel, viscera. A small defect from the trocar of the mesentery was identified and explored without injury to bowel. No injury had occurred to the small bowel or viscera. Severe peritoneal adhesions completely obscuring the liver, sleeve gastrectomy was found along the epigastrium and midline. Next, one 8 mm robotic port was placed along the right upper abdomen. An 8-mm port was were placed along the left lateral abdominal wall. The camera 8-mm port was maintained along the epigastrium. Another 12 mm port was placed along the left upper abdominal wall after exchanging the 5 mm port. Please note that the ports were placed at least 20 cm away from the target anatomy. Care was nellie en to check that each robotic arm were safely away from collision with the bed or the patient. The patient was repositioned in reverse Trendelenburg position at 14-degrees after lowering the bed. The robot was docked above the left side of the patient. Using a grasper for arm 3, a grasper for arm 1, including vessel sealer for arm 2, the robotic system was docked and primed as described. Instruments were interchanged by the recruitment and outreach assistant. I had sat at the console. Initial attention was brought to the severe peritoneal adhesions involving the greater omentum to the anterior abdominal wall of the epigastrium including midline and right including left upper quadrant. Using combination blunt dissection including vessel sealer for sharp dissection, extensive lysis of adhesions over 1 hour 45 minutes was performed. Upon careful inspection, a initial umbilical ventral hernia 3 cm was identified and undisturbed. Separately, the sleeve was completely adherent to the undersurface of the left lobe of the liver requiring meticulous dissection using a scissors with cautery without any gastrotomy. No bleeding had occurred along the liver dissection away from the sleeve gastrectomy. Dissection was carried to the hiatus circumferentially using vessel sealer including blunt dissection. Previous retained suture was found along the hiatus consistent with a prior repair. The hiatus hernia recurred anteriorly including a retained sac acting as a lead point for recurrence. To prevent any injury to the esophagus including proximal stomach, I performed an intraoperative upper endoscopy with the scope entering along the posterior oropharynx into the distal stomach and left in place as a bougie. The remnant gastrohepatic ligament was cleaved using a vessel sealer. Next, the phrenoesophageal ligament was mobilized and the distal esophagus was mobilized circumferentially. An incarcerated hernia sac was found into the mediastinum. As a result, deep dissection well into the mediastinum was needed to free the proximal sleeve gastrectomy including distal esophagus consistent with a type III hiatal hernia. The left and right crura was identified. Significant mobilization of the distal to mid esophagus into the mediastinum was performed. Circumferentially, the hernia sac was excised and brought into the abdominal cavity. Care was taken to avoid any gastrotomy to the incarcerated upper pole of the stomach. The measured defect was measured with a ruler consistent with 6 cm axial length and 4 cm in width. After extensive dissection, the distal esophagus at least 2 cm was brought into the abdominal cavity. Once the hiatus and crura was dissected, 2-0 VLOC suture was placed as a running suture to re-approximate the diaphragmatic hiatus posteriorly. To buttress the repair, a Roberts Biopatch A was prepared along the back table and cut in a ruby-hole fashion as to reinforce the repair as an underlay. The mesh was resized posteriorly placed along the crural repair and tagged using 2-0 VLOC. I went to the head of the bed to perform intraoperative esophagogastroduodenoscopy. An Olympus gastroscope was passed through posterior oropharynx, where the squamocolumnar junction was confirmed at 36 cm from the incisors. The hiatus repair was confirmed at 34 cm from the incisors. The stomach was entered. A confirmed pre-existing gastric stenosis was found at the angularis incisura. The duodenum was not intubated. Retroflexion of the scope was performed in the distal stomach. The stomach had been desufflated. No evidence of leaks were found or mucosal defects of the esophagus or stomach. This concluded the endoscopic portion of the case. The robot was undocked from the patient. I re-scrubbed into the case. All instruments and pneumoperitoneum were evacuated from the abdominal cavity. The incisions were cleansed with dilute hydrogen peroxide with saline solution. Incisions were reapproximated using 4-0 Monocryl in an interrupted subcuticular fashion. The 12-mm port site fascial defect was less than 8 mm in size. Exofinwas applied to the skin. Local anesthetic was infiltrated in all wounds for postop analgesia. Multiple intra-abdominal films were obtained. At the end of the procedure, needle, sponge, and instrument count was verified correct by the ophthalmology surgical technician. The patient had tolerated the procedure well and was taken to the postanesthesia unit in stable condition. Intraoperative films were reviewed with the patient's family who were pleased with the level of care. Console time: 138 minutes COMPLEXITY: Increased complexity of the case secondary to severe peritoneal adhesions from prior history of sleeve gastrectomy with leak. Meticulous dissection of sleeve gastrectomy from liver bed also performed. Extensive lysis of adhesions over 1 hour 45 minutes performed including separate dissection into mediastinum to address moderate recurrent incarcerated paraesophageal hiatal hernia, type III
[2018-07-15] MEDS: ONDANSETRON 4 MG/2 ML VIAL IVP SCH ×2 (13:35→17:55)
[2018-07-15] MEDS: LACTATED RINGERS 1,000 ML IV SCH (13:35)
[2018-07-15] MEDS: 0.9% NACL WITH KCL 20 MEQ/L 1,000 ML IV SCH ×2 (15:01→22:05)
[2018-07-15] MEDS: ceFAZolin IN SWFI 2 GM/20 ML SYRINGE IVP SCH ×2 (15:55→23:53)
[2018-07-15] MEDS: ALBUTEROL NEBULIZED 2.5 MG/3 ML INHALATION SCH ×2 (16:31→21:19)
[2018-07-15 16:50] VITALS: BMI 39.6
[2018-07-15] MEDS: SIMETHICONE 40 MG/0.6 ML DROPS 2,000 MG/30 ML BOTTLE PO SCH (17:54)
[2018-07-15] MEDS: HYOSCYAMINE ORAL DROPS 1.875 MG/15 ML BOTTLE PO SCH (17:54)
[2018-07-15] MEDS ORDERED: ACETAMINOPHEN ORAL SUSP 160 MG/5 ML CUP PO ONE (18:32)
[2018-07-15] MEDS: METOCLOPRAMIDE 5 MG/ML 2 ML VIAL IVP SCH (18:38)
[2018-07-15] MEDS: ENOXAPARIN 40 MG/0.4 ML SYRINGE SQ SCH (23:59)
[2018-07-16] MEDS: ONDANSETRON 4 MG/2 ML VIAL IVP SCH ×4 (00:01→17:39)
[2018-07-16] MEDS: SIMETHICONE 40 MG/0.6 ML DROPS 2,000 MG/30 ML BOTTLE PO SCH ×4 (00:01→17:39)
[2018-07-16] MEDS: HYOSCYAMINE ORAL DROPS 1.875 MG/15 ML BOTTLE PO SCH ×4 (00:01→17:40)
[2018-07-16] MEDS: METOCLOPRAMIDE 5 MG/ML 2 ML VIAL IVP SCH ×4 (06:22→17:39)
[2018-07-16] MEDS: 0.9% NACL WITH KCL 20 MEQ/L 1,000 ML IV SCH (06:23)
[2018-07-16] MEDS: LACTATED RINGERS 1,000 ML IV SCH (06:24)
[2018-07-16] MEDS: ENOXAPARIN 40 MG/0.4 ML SYRINGE SQ SCH (07:54)
[2018-07-16] MEDS ORDERED: 0.9% NACL WITH KCL 20 MEQ/L 1,000 ML IV SCH (08:00)
--- NOTE | 2018-07-16 08:45 | FL ---
EXAMINATION TYPE: FL esophagus cervic/pharynx DATE OF EXAM: 07/16/2018 HISTORY: 57-year-old female status post release of adhesions and hiatal hernia repair. Patient status post gastric sleeve performed 5 years ago. Total fluoroscopy time: 35 seconds. Total images: 18. COMPARISON: NONE TECHNIQUE: Single contrast esophagram is performed utilizing 40 mL Isovue-370. FINDINGS: The patient swallowed the oral contrast material without difficulty or delay. There is normal course, caliber, and motility of the esophagus and prompt passage from the esophagus into the stomach with n o evidence for residual hiatal hernia. Post surgical changes of prior sleeve gastrectomy are demonstr ated and there is eventual passage into the duodenum. There is no extravasation of contrast to sugges t leak. Trace postsurgical free air below the right hemidiaphragm. IMPRESSION: 1. No evidence for obstruction or leak status post hiatal hernia repair. 2. Underlying sleeve gastrectomy. 3. Trace postsurgical free air below the right hemidiaphragm.
[2018-07-16] MEDS ORDERED: PANTOPRAZOLE 40 MG/10 ML VIAL IV SCH (09:00)
[2018-07-16] MEDS: ALBUTEROL NEBULIZED 2.5 MG/3 ML INHALATION SCH ×3 (09:01→16:13)
[2018-07-16 10:18] LABS: Basophils % (A) 0 %; Eosinophils % (A) 1 %; HGB 10.7 gm/dL (11.4-16.0); Lymphocytes % (A) 22 %; MCH 28.9 pg (25.0-35.0); MCHC 33.3 g/dL (31.0-37.0); MCV 86.8 fL (80.0-100.0); Mean Platelet Volume 7.7; Monocytes # (A) 0.3 k/uL (0-1.0); Monocytes % (A) 6 %; Neutrophils # (A) 3.2 k/uL (1.3-7.7); Neutrophils % (A) 70 %; Platelet Count 159 k/uL (150-450); RBC 3.68 m/uL (3.80-5.40); RDW 14.7 % (11.5-15.5); WBC 4.5 k/uL (3.8-10.6)
[2018-07-16 10:33] LABS: Anion Gap 6 mmol/L; Blood Urea Nitrogen 19 mg/dL (7-17); Calcium 8.7 mg/dL (8.4-10.2); Carbon Dioxide 25 mmol/L (22-30); Chloride 112 mmol/L (98-107); Phosphorus 2.8 mg/dL (2.5-4.5); Potassium 4.2 mmol/L (3.5-5.1); Sodium 143 mmol/L (137-145)
--- NOTE | 2018-07-16 12:10 | P.DS ---
<Palak Palm - Last Filed: 07/16/18 13:59> Providers Expected date of discharge: 07/16/18 - Discharge Diagnosis(es) (1) Hiatal hernia Status: Acute (2) GERD (gastroesophageal reflux disease) Status: Acute (3) History of sleeve gastrectomy Status: Acute (4) Peritoneal adhesions Status: Acute Hospital Course: 57-year-old female who underwent robotic-assisted da Nigel Xi laparoscopic reduction and repair of recurrent incarcerated paraesophageal hiatal hernia and extensive lysis of adhesions with Dr. Maurer on 07/15/2018. The patient is doing well postoperatively without any immediate competitions. Esophagram completed postoperatively is negative for evidence of obstruction or leak. Patient is tolerating clear liquids. Her pain is tolerable on oral medications. She has been ambulating in the hallway. Passing flatus. Voiding without difficulty. WBC 4.5. Hemoglobin 10.7. Preoperative hemoglobin 11.7. The patient is stable for discharge home today. She is to follow up with Dr. Maurer outpatient. Please see EMR for further hospital course details. DISCHARGE DIAGNOSIS: 1. Gastroesophageal reflux disease, severe with erosive esophagitis 2. Paraesophageal hiatal hernia, midline, incarcerated and recurrent, 6 x 4 cm, type III 3. Morbid obesity due to excess calories, BMI of 40.3. 4. History of sleeve gastrectomy 5. Epigastric abdominal pain. 6. History of pulmonary embolism 7. History of deep venous thrombosis 8. Severe intra-abdominal peritoneal adhesions of omentum to epigastric abdominal wall, sleeve gastrectomy to the liver 9. Umbilical ventral hernia without incarceration, initial Nurse practitioner note has been reviewed by physician. Signing provider agrees with the documented findings, assessment, and plan of care. Patient Condition at Discharge: Stable Plan - Discharge Summary Discharge Rx Participant: Yes New Discharge Prescriptions: New Bisacodyl [Dulcolax] 5 mg PO DAILY PRN #10 tablet.dr PRN Reason: Constipation Simethicone 40 mg/0.6 ml Drops [Mylicon Drops] 40 mg PO PCHS #30 ml Ondansetron Odt [Zofran Odt] 4 mg PO Q8HR PRN #12 tab PRN Reason: Nausea Acetaminophen Oral Susp [Tylenol] 650 mg PO Q6H PRN #100 ml PRN Reason: Pain Discontinued Biotin 5 mg PO DAILY Dexlansoprazole [Dexilant] 60 mg PO DAILY Cholecalciferol [Vitamin D3] 2,000 unit PO DAILY L.acidoph,Paracasei, B.lactis [Probiotic] 1 cap PO DAILY Vits A,C,E/Lutein/Minerals [Ocuvite with Lutein Tablet] 1 each PO DAILY Cyanocobalamin [Vitamin B-12 Injection] 1,000 mg IM Q28D Turmeric Root Extract [Turmeric] 500 mg PO DAILY Nitrofurantoin Monohyd/M-Cryst [Macrobid] 100 mg PO BID Discharge Medication List Acetaminophen Oral Susp [Tylenol] 650 mg PO Q6H PRN #100 ml 07/16/18 [Rx] Bisacodyl [Dulcolax] 5 mg PO DAILY PRN #10 tablet. 07/16/18 [Rx] Ondansetron Odt [Zofran Odt] 4 mg PO Q8HR PRN #12 tab 07/16/18 [Rx] Simethicone 40 mg/0.6 ml Drops [Mylicon Drops] 40 mg PO PCHS #30 ml 07/16/18 [Rx] Follow up Appointment(s)/Referral(s): [facility],. [NON-STAFF] - 07/19/18 10:00 am Patient Instructions/Handouts: Laparoscopic Hiatal Hernia Repair (DC) Activity/Diet/Wound Care/Special Instructions: continue on diet as instructed by physician. Tylenol as needed for pain No lifting pushing or pulling over 4 pounds 4 weeks You may shower. No soaking or tub baths Very light activity until you are reevaluated at your follow up appointment with your surgeon Call physician with any questions comments concerns worsening returning symptoms, fever 101.1 or higher, not tolerating diet, not tolerating fluids, pain not controlled by pain medication prescribed. Discharge Disposition: HOME SELF-CARE <Yenifer Maurer - Last Filed: 07/16/18 19:54> Providers Date of admission: 07/15/18 07:42 Attending physician: Yenifer Maurer Primary care physician: [facility] Course: Blood pressure resolved after IV fluid bolus. Patient cleared for discharge.
[2018-07-16 12:51] VITALS: RESP 16
[2018-07-16] MEDS ORDERED: ACETAMINOPHEN ORAL SUSP (PEDS) 3,840 MG/120 ML BOTTLE PO PRN (12:52)
[2018-07-16] MEDS ORDERED: SODIUM CHLORIDE 0.9% 1,000 ML IV ONE (13:45)
[2018-07-16 17:21] VITALS: BP 122/68; PULSE 98; TEMP 97.9
--- NOTE | 2018-07-16 18:39 | P.PN ---
Progress Note - Text Progress Note Date: 07/16/18 Patient seen and evaluated. She had transient hypotension responsive to fluid bolus. No reports of dizziness, lightheadedness. Discharge instructions and diet reviewed with reading material dispensed. Medical reconciliation completed. Blood pressure on 2 repeats now normal. Patient stable for discharge with follow up in bariatric center in 3 days, 07/19/18 at the bariatric center.
[2018-07-17] MEDS ORDERED: BISACODYL 5 MG TABLET.DR PO PRN (08:00)
== END 2018-07-16 19:14 | disposition home or self-care (01) | DRG 327 ==
LOC: 2ORMAIN 07:42 → 6PED 11:58
PROVIDERS: ADMIT Surgery Plastic and Reconstructive Surgery; ATTEND Surgery Plastic and Reconstructive Surgery
PROC: 0DNW4ZZ Release Peritoneum, Percutaneous Endoscopic Approach (ICD-10-PCS; 2018-07-15)
PROC: 8E0W4CZ Robotic Assisted Procedure of Trunk Region, Percutaneous Endoscopic Approach (ICD-10-PCS; 2018-07-15)
PROC: 0DJ08ZZ Inspection of Upper Intestinal Tract, Via Natural or Artificial Opening Endoscopic (ICD-10-PCS; 2018-07-15)
PROC: 0BUT4JZ Supplement Diaphragm with Synthetic Substitute, Percutaneous Endoscopic Approach (ICD-10-PCS; principal; 2018-07-15 08:30)
DX: K44.0 Diaphragmatic hernia with obstruction, without gangrene (principal); Z68.41 Body mass index [BMI] 40.0-44.9, adult; E66.01 Morbid (severe) obesity due to excess calories; I95.9 Hypotension, unspecified; K21.0 Gastro-esophageal reflux disease with esophagitis; K43.9 Ventral hernia without obstruction or gangrene; K66.0 Peritoneal adhesions (postprocedural) (postinfection); Z79.899 Other long term (current) drug therapy; Z86.711 Personal history of pulmonary embolism; Z86.718 Personal history of other venous thrombosis and embolism; Z98.84 Bariatric surgery status; Z90.49 Acquired absence of other specified parts of digestive tract; Z88.1 Allergy status to other antibiotic agents; Z88.2 Allergy status to sulfonamides; Z80.9 Family history of malignant neoplasm, unspecified; Z82.49 Family history of ischemic heart disease and other diseases of the circulatory system
CPT/HCPCS: 74210; 80051; 82310; 82565; 83735; 84100; 84520; 85025; 86850; 86900; 86901; 94640; 94760

== ENCOUNTER → 2018-07-19 | Outpatient (CLI) | payer BC ==
[2018-07-19 11:36] VITALS: BP 154/79; PULSE 61; RESP 16; TEMP 98; BMI 39.5
--- NOTE | 2018-07-19 18:27 | P.PN ---
Subjective Progress Note Date: 07/19/18 DATE OF SERVICE: 07/19/2018 CHIEF COMPLAINT: Gastroesophageal reflux disease HISTORY OF PRESENT ILLNESS: Rdaha Espinal is a 57-year-old female who is status post hiatal hernia repair 07/15/2018. She is POD 4. She is well. Her gastroesophageal reflux disease is now gone since surgery. She is tolerating liquids. She is having bowel movements. She is on a liquid diet. Pain is well-controlled. Overall she's happy with the success of her surgery. She reports on occasion left upper quadrant abdominal pain which occurred today after lactose drinks. Her highest weight was 307 pounds. Today she comes in weighing 244 pounds from 250 pounds, 2 months ago. She has lost 6 pounds in 2 months. At height of 5 feet 6 inches, her ideal body weight is 154 pounds. Her highest weight was 307 pounds. Her body mass index highest was 49.7. Today her BMI is 39.5. Lifetime weight loss is 63 pounds. Percent excess weight loss is 41% PHYSICAL EXAM: VITAL SIGNS: Height 5 foot 6 inches, weight 244 pounds. BMI 39.5 Vital Signs Temp 98 F 07/19/18 11:30 Pulse 61 07/19/18 11:30 Resp 16 07/19/18 11:30 BP 154/79 07/19/18 11:30 Pulse Ox GENERAL: Well-developed in no acute distress. HEENT: No scleral icterus. Extraocular movements grossly intact. Hears conversational speech. No nasal drainage. NECK: Supple without lymphadenopathy. CHEST: Nonlabored respirations with equal bilateral excursions. CARDIOVASCULAR: Regular rate and regular rhythm. Distal 2+ pulses. ABDOMEN: Soft, incisions, clean dry and intact. MUSCULOSKELETAL: No clubbing, cyanosis. Gross strength 5/5 distal lower extremities. NEURO: No focal or lateralizing signs. Cranial nerves 2 through 12 grossly within normal limits. PSYCH: Appropriate affect. Alert and oriented to person, place and time. SKIN: Good skin turgor. Well perfused. ASSESSMENT: 1. Morbid obesity due to excess calories 2. Body mass index of 49.7, initial to 39.5 3. Osteoarthritis of the knees. 4. Gastroesophageal reflux disease 5. Osteoarthritis of the lower back. 6. Hypertensive heart disease. 7. Complications of sleeve gastrectomy 8. Epigastric abdominal pain 9. Left upper quadrant abdominal pain. 10. Status post hiatal hernia repair PLAN: 1. Continue with liquid diet total of 2 weeks. 2. Follow bariatric diet sheet. 3. Recommend avoiding lactose drinks as she reports crampy abdominal pain. Lactose-free advised. Objective - Vital Signs Vital signs: Vital Signs Temp 98 F 07/19/18 11:30 Pulse 61 07/19/18 11:30 Resp 16 07/19/18 11:30 BP 154/79 07/19/18 11:30 Pulse Ox Intake & Output 07/18/18 07/19/18 07/19/18 18:59 06:59 18:59 Weight 111.13 kg
== END | disposition home or self-care (01) ==
LOC: BARWHC3 09:55
PROVIDERS: ATTEND Surgery Plastic and Reconstructive Surgery
DX: Z48.815 Encounter for surgical aftercare following surgery on the digestive system (principal); E66.01 Morbid (severe) obesity due to excess calories; M17.0 Bilateral primary osteoarthritis of knee; K21.9 Gastro-esophageal reflux disease without esophagitis; M47.816 Spondylosis without myelopathy or radiculopathy, lumbar region; I11.9 Hypertensive heart disease without heart failure; R10.13 Epigastric pain; R10.12 Left upper quadrant pain; K95.89 Other complications of other bariatric procedure; Z68.39 Body mass index [BMI] 39.0-39.9, adult; Z98.890 Other specified postprocedural states
CPT/HCPCS: 99211

== ENCOUNTER → 2018-07-26 | Outpatient (CLI) | payer BC ==
[2018-07-26 11:15] VITALS: BP 110/71; PULSE 61; TEMP 97.9; BMI 37.9
--- NOTE | 2018-07-26 11:50 | P.PN ---
Subjective Progress Note Date: 07/26/18 DATE OF SERVICE: 07/26/2018 CHIEF COMPLAINT: Gastroesophageal reflux disease HISTORY OF PRESENT ILLNESS: Radha Espinal is a 57-year-old female who is status post hiatal hernia repair 07/15/2018. She is 2 weeks out. She now reports reflux now present since her last visit. She reports the reflux is now severe. Her highest weight was 307 pounds. Today she comes in weighing 234 pounds from 244 pounds, 2 weeks ago. She has lost 10 pounds in 2 weeks. At height of 5 feet 6 inches, her ideal body weight is 154 pounds. Her highest weight was 307 pounds. Her body mass index highest was 49.7. Today her BMI is 37.9. Lifetime weight loss is 72 pounds. Percent excess weight loss is 47% PHYSICAL EXAM: VITAL SIGNS: Height 5 foot 6 inches, weight 234 pounds. BMI 37.9 Vital Signs Temp 97.9 F 07/26/18 11:13 Pulse 61 07/26/18 11:13 Resp BP 110/71 07/26/18 11:13 Pulse Ox GENERAL: Well-developed in no acute distress. HEENT: No scleral icterus. Extraocular movements grossly intact. Hears conversational speech. No nasal drainage. NECK: Supple without lymphadenopathy. CHEST: Nonlabored respirations with equal bilateral excursions. CARDIOVASCULAR: Regular rate and regular rhythm. Distal 2+ pulses. ABDOMEN: Soft, incisions, clean dry and intact. MUSCULOSKELETAL: No clubbing, cyanosis. Gross strength 5/5 distal lower extremities. NEURO: No focal or lateralizing signs. Cranial nerves 2 through 12 grossly within normal limits. PSYCH: Appropriate affect. Alert and oriented to person, place and time. SKIN: Good skin turgor. Well perfused. STUDIES: Esophogram independently reviewed without recurrent hiatal hernia. ASSESSMENT: 1. Morbid obesity due to excess calories 2. Body mass index of 49.7, initial to 39.5 3. Osteoarthritis of the knees. 4. Gastroesophageal reflux disease 5. Osteoarthritis of the lower back. 6. Hypertensive heart disease. 7. Complications of sleeve gastrectomy 8. Epigastric abdominal pain 9. Left upper quadrant abdominal pain. 10. Status post hiatal hernia repair PLAN: 1. Recommend Reglan for gastroparesis 2. Because of complications from her sleeve recommend potential revision 3. Follow up in 10 days. 4. Four (4) pound restriction to 08/12/18 for 4 weeks. Objective - Vital Signs Vital signs: Vital Signs Temp 97.9 F 07/26/18 11:13 Pulse 61 07/26/18 11:13 Resp BP 110/71 07/26/18 11:13 Pulse Ox Intake & Output 07/25/18 07/26/18 07/26/18 18:59 06:59 18:59 Weight 106.594 kg
== END ==
LOC: BARWHC3 10:41
PROVIDERS: ATTEND Surgery Plastic and Reconstructive Surgery
DX: K21.9 Gastro-esophageal reflux disease without esophagitis (principal); E66.01 Morbid (severe) obesity due to excess calories; M17.0 Bilateral primary osteoarthritis of knee; M47.816 Spondylosis without myelopathy or radiculopathy, lumbar region; I11.9 Hypertensive heart disease without heart failure; R10.13 Epigastric pain; Z98.890 Other specified postprocedural states; Z68.39 Body mass index [BMI] 39.0-39.9, adult; Z98.84 Bariatric surgery status
CPT/HCPCS: 99211

== ENCOUNTER → 2018-07-26 | Outpatient (CLI) | payer BC ==
--- NOTE | 2018-07-26 10:55 | FL ---
ESOPHOGRAM. HISTORY: Dysphagia and heart burn since post viji surgery 07/15/18. 2oz of EZ Paque administered by Holley Jung. 1 min 29 sec fluoro. Esophagram was performed per the single contrast technique. The patient swallowed barium without dif ficulty or delay. Esophageal peristalsis and motility appear to be within normal limits. Postoperative changes of Morgan fundoplication. No evidence for obstruction or leak. Evidence of mild to moderate gastroesophageal reflux during the course of the study. Postoperative changes of the gas tric sleeve formation without obstruction. IMPRESSION: Postoperative changes of Morgan fundoplication with gastroesophageal reflux as noted.
== END | disposition home or self-care (01) ==
LOC: RADFLWHC 10:09
PROVIDERS: ATTEND Surgery Plastic and Reconstructive Surgery
DX: K21.9 Gastro-esophageal reflux disease without esophagitis (principal); Z98.890 Other specified postprocedural states; Z88.1 Allergy status to other antibiotic agents; Z88.2 Allergy status to sulfonamides; Z88.5 Allergy status to narcotic agent
CPT/HCPCS: 74220

== ENCOUNTER → 2018-08-19 | Outpatient (CLI) | payer BC ==
--- NOTE | 2018-08-19 17:47 | US ---
EXAMINATION TYPE: US venous doppler duplex LE LT DATE OF EXAM: 08/19/2018 5:26 PM COMPARISON: NONE CLINICAL HISTORY: R22.42 Swelling,mass and lum, left lower limb. Left leg swelling hx of DVT left leg . SIDE PERFORMED: Left TECHNIQUE: The lower extremity deep venous system is examined utilizing real time linear array sonog joaquina with graded compression, doppler sonography and color-flow sonography. VESSELS IMAGED: External Iliac Vein (EIV) Common Femoral Vein Deep Femoral Vein Greater Saphenous Vein * Femoral Vein Popliteal Vein Small Saphenous Vein * Proximal Calf Veins (* superficial vessels) Left Leg: Negative for DVT IMPRESSION: No evidence of deep venous thrombosis in the left leg.
== END | disposition home or self-care (01) ==
LOC: RADUSMAIN 16:58
PROVIDERS: ATTEND Internal Medicine
DX: R22.42 Localized swelling, mass and lump, left lower limb (principal)

== ENCOUNTER → 2018-12-18 | Outpatient (CLI) | payer BC ==
[2018-12-18 17:35] VITALS: BP 128/68; PULSE 66; TEMP 98.2; BMI 39.8
--- NOTE | 2018-12-18 21:21 | P.PN ---
Subjective Progress Note Date: 12/18/18 HPI: Patient still has severe reflux disease despite previous hiatal hernia. She has a sleeve gastrectomy with gastroesophageal reflux disease. She has anatomical complications from a sleeve gastrectomy. ABDOMEN: Soft obese ASSESSMENT: 1. Morbid obesity 2. Complications from sleeve gastrectomy PLAN: 1. Recommend revision from sleeve gastrectomy to gastric bypass as all previous measures, conservative management has failed including structural complications from her sleeve gastrectomy. Objective - Vital Signs Vital signs: Vital Signs Temp 98.2 F 12/18/18 17:31 Pulse 66 12/18/18 17:31 Resp BP 128/68 12/18/18 17:31 Pulse Ox Intake & Output 12/18/18 12/18/18 12/19/18 06:59 18:59 06:59 Weight 111.992 kg
== END | disposition home or self-care (01) ==
LOC: BARWHC3 16:00
PROVIDERS: ATTEND Surgery Plastic and Reconstructive Surgery
DX: Z48.815 Encounter for surgical aftercare following surgery on the digestive system (principal); K95.89 Other complications of other bariatric procedure; E66.01 Morbid (severe) obesity due to excess calories; K21.9 Gastro-esophageal reflux disease without esophagitis; Z98.84 Bariatric surgery status
CPT/HCPCS: 99211

== ENCOUNTER → 2019-01-15 | Outpatient (CLI) | payer BC ==
--- NOTE | 2019-01-15 17:38 | P.PN ---
Subjective Progress Note Date: 01/15/19 DATE OF SERVICE: 01/15/2019 CHIEF COMPLAINT: Complications from sleeve gastrectomy HISTORY OF PRESENT ILLNESS: Radha Espinal is a 58-year-old female who is status post sleeve gastrectomy, 2013. She had complications from her sleeve gastrectomy including uncontrolled gastroesophageal reflux disease. Despite hiatal hernia repair, she still has severe epigastric abdominal pain. 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 Her reflux is severe. She has undergone medical supervised weight loss over 6 months including prior and after her hiatal hernia repair. She comes in for surgical options to correct her bariatric procedure. Her highest weight was 307 pounds. Today she comes in weighing 249 pounds from 246 pounds, 1 month ago. She has gained 3 pounds in 1 month. At height of 5 feet 6 inches, her ideal body weight is 154 pounds. Her body mass index highest was 49.7. Today her BMI is 39.9. Lifetime weight loss is 58 pounds. Percent excess weight loss is 38 %, lifetime. PAST MEDICAL HISTORY: 1. Morbid obesity due to excess calories 2. Body mass index of 49.7, initial 3. Osteoarthritis of the knees. 4. Gastroesophageal reflux disease 5. Osteoarthritis of the lower back. 6. Hypertensive heart disease. PAST SURGICAL HISTORY: 1. Sleeve gastrectomy 2. Tubal ligation 3. Cholecystectomy 5. Varicose vein stripping 6. Hiatal hernia repair HOME MEDICATIONS: Home Medications Medication Instructions Recorded Confirmed Dexlansoprazole [Dexilant] 60 mg PO DAILY 12/18/18 12/19/18 ALLERGIES: Allergies Allergy/AdvReac Type Severity Reaction Status Date / Time clarithromycin [From Biaxin] Allergy Rash/Hives Verified 12/18/18 17:36 daptomycin Allergy MUSCLES Verified 12/18/18 17:36 "CURLED UP" Sulfa (Sulfonamide Allergy Rash/Hives Verified 12/18/18 17:36 Antibiotics) SOCIAL HISTORY: No past tobacco use. FAMILY HISTORY: No family history of ulcerative colitis disease or Crohn's disease. Family history of morbid obesity. No lupus in the family. No reports o f stomach or esophageal cancer. Her grandfather had colon cancer. REVIEW OF ORGAN SYSTEMS: CONSTITUTIONAL: At height of 5 feet 6 inches, her ideal body weight is 154 pounds. Her highest weight was 307 pounds. Her body mass index highest was 49.7. HEENT: Denies any active troubles with vision or hearing. No troubles with swallowing. ENDOCRINE: No diabetes. No hypothyroidism. CARDIOVASCULAR: No reports of palpitations or heart attacks or chest pain. RESPIRATORY: Past history of pulmonary embolism including DVT GI: Denies any bright red blood per rectum. No diarrhea. Has recurrent ga stroesophageal reflux disease. MUSCULOSKELETAL: Has lower back pain and joint pain. Has osteoarthritis of the knees. History of bilateral lower extremity edema. NEURO: No headaches. No seizure disorders. PSYCH: No depression. No suicidal ideation. RHEUMATOLOGIC: No lupus. No rheumatoid arthritis. HEMATOLOGIC: Denies any abnormal bleeding or bruising. Has personal history of DVTs. SKIN: No rash. No skin cancer. PHYSICAL EXAM: VITAL SIGNS: Height 5 foot 6 inches, weight 249 pounds. BMI 40.3 Vital Signs Temp 97.6 F 01/15/19 16:58 Pulse 68 01/15/19 16:58 Resp BP 126/79 01/15/19 16:58 Pulse Ox GENERAL: Well-developed in no acute distress. HEENT: No scleral icterus. Extraocular movements grossly intact. Hears conversational speech. No nasal drainage. NECK: Supple without lymphadenopathy. CHEST: Nonlabored respirations with equal bilateral excursions. CARDIOVASCULAR: Regular rate and regular rhythm. Distal 2+ pulses. ABDOMEN: Soft, non-distended. No peritonitis. MUSCULOSKELETAL: No clubbing, cyanosis. Gross strength 5/5 distal lower extremities. NEURO: No focal or lateralizing signs. Cranial nerves 2 through 12 grossly within normal limits. PSYCH: Appropriate affect. Alert and oriented to person, place and time. SKIN: Good skin turgor. Well perfused. STUDIES: Esophagram independently reviewed confirms severe intra-esophageal reflux disease with her sleeve gastrectomy ASSESSMENT: 1. Morbid obesity due to excess calories 2. Body mass index of 49.7 to 40.3 3. Osteoarthritis of the knees. 4. Gastroesophageal reflux disease 5. Osteoarthritis of the lower back. 6. Hypertensive heart disease. 7. Complications from sleeve gastrectomy PLAN: 1. She presents for surgical correction from complications from her sleeve gastrectomy. Conversion from a sleeve to a gastric bypass will correct her reflux disease and provide intermission coordinator correction of her morbid obesity. Robotic assisted approach described. 2. The [place] [facility] Data was also reviewed with benefits and risks as described. 3. An 8 page second-generation bariatric consent form was reviewed in detail including potential of bleeding, infection, leaks, adequate weight loss, nutritional deficiencies which the patient demonstrated understanding of the risks. 4. A 2 week high-protein low caloric 800 kcal diet described to address h epatomegaly. 5. Preoperative labs including complete metabolic panel and CBC with type and screen recommended. 6. DVT prophylaxis per [place] [facility]. 7. Antibiotic prophylaxis. 8. Inpatient hospitalization anticipated for more than 2 nights. 9. All questions and concerns were addressed with the patient. 10. She is elevated risks for complications including stricture and leaks as this is a conversion procedure including with a prior history of leak from her sleeve gastrectomy. 11. Post-surgical requirements including prolonged liquid diet post- operatively, close post-operative follow-ups, and weight lifting restriction of 4 pounds over 4 weeks was reviewed for which she demonstrated understanding.
[2019-01-17 07:28] VITALS: BP 126/79; PULSE 68; TEMP 97.6; BMI 40.3
== END | disposition home or self-care (01) ==
LOC: BARWHC3 16:17
PROVIDERS: ATTEND Surgery Plastic and Reconstructive Surgery
DX: E66.01 Morbid (severe) obesity due to excess calories (principal); Z68.41 Body mass index [BMI] 40.0-44.9, adult; M17.0 Bilateral primary osteoarthritis of knee; K21.9 Gastro-esophageal reflux disease without esophagitis; I11.9 Hypertensive heart disease without heart failure; K95.89 Other complications of other bariatric procedure; Z90.49 Acquired absence of other specified parts of digestive tract; Z79.899 Other long term (current) drug therapy; Z88.1 Allergy status to other antibiotic agents; Z88.2 Allergy status to sulfonamides
CPT/HCPCS: 99211

== ENCOUNTER → 2019-02-19 | Outpatient (CLI) | payer BC ==
[2019-02-19 16:50] VITALS: BP 139/81; PULSE 80; RESP 16; TEMP 97.8; BMI 39.4
--- NOTE | 2019-02-19 17:05 | P.PN ---
Subjective Progress Note Date: 02/19/19 DATE OF SERVICE: 02/19/2019 CHIEF COMPLAINT: Complications from sleeve gastrectomy HISTORY OF PRESENT ILLNESS: Radha Espinal is a 58-year-old female who is status post sleeve gastrectomy, 2013. She had complications from her sleeve including leaks with severe scarring of her sleeve. She has severe gastroesophageal reflux disease not controlled with medications. Additional diagnostic studies confirms severe intra-esophageal reflux disease. Despite previous hiatal hernia repair, her symptoms are still persistent. She comes in with chronic nausea. She presents today for adherence of her medical supervised weight loss. Her highest weight was 307 pounds. Today she comes in weighing 243 pounds from 249 pounds, 1 month ago. She has lost 6 pounds in 1 month. At height of 5 feet 6 inches, her ideal body weight is 154 pounds. Her body mass index highest was 49.7. Today her BMI is 39.4. Lifetime weight loss is 64 pounds. Percent excess weight loss is 42 %, lifetime. PAST MEDICAL HISTORY: 1. Morbid obesity due to excess calories 2. Body mass index of 49.7, initial 3. Osteoarthritis of the knees. 4. Gastroesophageal reflux disease 5. Osteoarthritis of the lower back. 6. Hypertensive heart disease. PAST SURGICAL HISTORY: 1. Sleeve gastrectomy 2. Tubal ligation 3. Cholecystectomy 5. Varicose vein stripping 6. Hiatal hernia repair HOME MEDICATIONS: Home Medications Medication Instructions Recorded Confirmed Dexlansoprazole [Dexilant] 60 mg PO DAILY 12/18/18 12/19/18 ALLERGIES: Allergies Allergy/AdvReac Type Severity Reaction Status Date / Time clarithromycin [From Biaxin] Allergy Rash/Hives Verified 12/18/18 17:36 daptomycin Allergy MUSCLES Verified 12/18/18 17:36 "CURLED UP" Sulfa (Sulfonamide Allergy Rash/Hives Verified 12/18/18 17:36 Antibiotics) SOCIAL HISTORY: No past tobacco use. FAMILY HISTORY: No family history of ulcerative colitis disease or Crohn's disease. Family history of morbid obesity. No lupus in the family. No reports of stomach or esophageal cancer. Her grandfather had colon cancer. REVIEW OF ORGAN SYSTEMS: CONSTITUTIONAL: At height of 5 feet 6 inches, her ideal body weight is 154 pounds. Her highest weight was 307 pounds. Her body mass index highest was 49.7. HEENT: Denies any active troubles with vision or hearing. No troubles with swallowing. ENDOCRINE: No diabetes. No hypothyroidism. CARDIOVASCULAR: No reports of palpitations or heart attacks or chest pain. RESPIRATORY: Past history of pulmonary embolism including DVT GI: Denies any bright red blood per rectum. No diarrhea. Has recurrent gastroesophageal reflux disease. MUSCULOSKELETAL: Has lower back pain and joint pain. Has osteoarthritis of the knees. History of bilateral lower extremity edema. NEURO: No headaches. No seizure disorders. PSYCH: No depression. No suicidal ideation. RHEUMATOLOGIC: No lupus. No rheumatoid arthritis. HEMATOLOGIC: Denies any abnormal bleeding or bruising. Has personal history of DVTs. SKIN: No rash. No skin cancer. PHYSICAL EXAM: VITAL SIGNS: Height 5 foot 6 inches, weight 243 pounds. BMI 39.4 Vital Signs Temp 97.8 F 02/19/19 16:48 Pulse 80 02/19/19 16:48 Resp 16 02/19/19 16:48 BP 139/81 02/19/19 16:48 Pulse Ox GENERAL: Well-developed in no acute distress. HEENT: No scleral icterus. Extraocular movements grossly intact. Hears conversational speech. No nasal drainage. NECK: Supple without lymphadenopathy. CHEST: Nonlabored respirations with equal bilateral excursions. CARDIOVASCULAR: Regular rate and regular rhythm. Distal 2+ pulses. ABDOMEN: Soft, non-distended. No peritonitis. MUSCULOSKELETAL: No clubbing, cyanosis. Gross strength 5/5 distal lower extremities. NEURO: No focal or lateralizing signs. Cranial nerves 2 through 12 grossly within normal limits. PSYCH: Appropriate affect. Alert and oriented to person, place and time. SKIN: Good skin turgor. Well perfused. ASSESSMENT: 1. Morbid obesity due to excess calories 2. Body mass index of 49.7 to 39.4 3. Osteoarthritis of the knees. 4. Gastroesophageal reflux disease 5. Osteoarthritis of the lower back. 6. Hypertensive heart disease. 7. Complications from sleeve gastrectomy PLAN: 1. Recommend new bariatric labs to correct for any nutritional deficiences. 2. Dietitian education for adherence of post-gastrectomy diet completed. 3. She is at elevated risk for complications for sleeve gastrectomy to gastric bypass. 4. All questions were addressed for pre-operative, addi-operative and post- operative preparation and complications for bariatric surgery conversion from a sleeve to gastric bypass. Laboratory Last Values WBC 4.9 k/uL (3.8-10.6) 02/19/19 17:14 RBC 4.17 m/uL (3.80-5.40) 02/19/19 17:14 Hgb 11.5 gm/dL (11.4-16.0) 02/19/19 17:14 Hct 36.5 % (34.0-46.0) 02/19/19 17:14 MCV 87.4 fL (80.0-100.0) 02/19/19 17:14 MCH 27.6 pg (25.0-35.0) 02/19/19 17:14 MCHC 31.6 g/dL (31.0-37.0) 02/19/19 17:14 RDW 14.2 % (11.5-15.5) 02/19/19 17:14 Plt Count 259 k/uL (150-450) 02/19/19 17:14 PT 9.8 sec (9.0-12.0) 02/19/19 17:14 INR 0.9 (<1.2) 02/19/19 17:14 APTT 25.4 sec (22.0-30.0) 02/19/19 17:14 Sodium 141 mmol/L (135-145) 02/19/19 17:14 Potassium 4.3 mmol/L (3.5-5.5) 02/19/19 17:14 Chloride 107 mmol/L (96-109) 02/19/19 17:14 Carbon Dioxide 24.4 mmol/L (21.6-31.8) 02/19/19 17:14 Anion Gap 9.60 mmol/L (4.00-12.00) 02/19/19 17:14 BUN 20.0 mg/dL (9.0-27.0) 02/19/19 17:14 Creatinine 0.9 mg/dL (0.6-1.5) 02/19/19 17:14 Est GFR (CKD-EPI)AfAm 81.1 (60.0-200.0) 02/19/19 17:14 Est GFR (CKD-EPI)NonAf 70.0 (60.0-200.0) 02/19/19 17:14 BUN/Creatinine Ratio 22.22 Ratio (12.00-20.00) H 02/19/19 17:14 Glucose 102 mg/dL (70-110) 02/19/19 17:[address] Glu mg/dL 114 02/19/19 17:14 Hemoglobin A1c 5.6 % (4.0-6.0) 02/19/19 17:14 Calcium 8.9 mg/dL (8.7-10.3) 02/19/19 17:14 Phosphorus 3.8 mg/dL (2.4-5.1) 02/19/19 17:14 Magnesium 2.2 mg/dL (1.5-2.4) 02/19/19 17:14 Iron 21 ug/dL (50-170) L 02/19/19 17:14 TIBC 409 ug/dL (228-460) 02/19/19 17:14 % Saturation 5.13 (12.00-45.00) L 02/19/19 17:14 Ferritin 57.5 ng/mL (10.0-291.0) 02/19/19 17:14 Total Bilirubin 0.4 mg/dL (0.3-1.2) 02/19/19 17:14 AST 30 U/L (13-35) 02/19/19 17:14 ALT 20 U/L (8-44) 02/19/19 17:14 Alkaline Phosphatase 111 U/L (41-126) 02/19/19 17:14 Total Protein 6.8 g/dL (6.2-8.2) 02/19/19 17:14 Albumin 4.50 g/dL (3.80-4.90) 02/19/19 17:14 Globulin 2.3 g/dL (1.6-3.3) 02/19/19 17:14 Albumin/Globulin Ratio 1.96 g/dL (1.60-3.17) 02/19/19 17:14 Prealbumin 12.0 mg/dL (18.0-42.0) L 02/19/19 17:14 Triglycerides 79.0 mg/dL (0.0-149.0) 02/19/19 17:14 Cholesterol 168 mg/dL (0-200) 02/19/19 17:14 LDL Cholesterol, Calc 81.2 mg/dL (0.0-131.0) 02/19/19 17:14 VLDL Cholesterol, Calc 15.80 mg/dL (5.00-40.00) 02/19/19 17:14 HDL Cholesterol 71.0 mg/dL (40.0-60.0) H 02/19/19 17:14 Cholesterol/HDL Ratio 2.37 02/19/19 17:14 Vitamin A 27 ug/dL (38-106) L 02/19/19 17:14 Vitamin B1 41 ug/L (38-122) 02/19/19 17:14 Vitamin B12 340.0 pg/mL (200.0-944.0) 02/19/19 17:14 Vitamin D 25-Hydroxy 21.0 ng/mL (30.0-100.0) L 02/19/19 17:14 Folate 16.4 ng/mL 02/19/19 17:14 TSH 2.170 uIU/mL (0.350-5.500) 02/19/19 17:14 PTH Intact 78.7 pg/mL (14.0-72.0) H 02/19/19 17:14 Copper 1656 ug/L (810-1990) 02/19/19 17:14 Zinc 78 ug/dL (60-130) 02/19/19 17:14 Selenium 99 mcg/L (63-160) 02/19/19 17:14 Iron is low at 21, recommend iron infusion Pre-albumin is low and will need 75 gram protein daily Vitamin A is low and will need supplement 10,000 units daily Vitamin D is low and will need supplement 50,000 units weekly PTH is elevated and will need Calcium supplement 1200 mg daily Objective - Vital Signs Vital signs: Vital Signs Temp 97.8 F 02/19/19 16:48 Pulse 80 02/19/19 16:48 Resp 16 02/19/19 16:48 BP 139/81 02/19/19 16:48 Pulse Ox Intake & Output 02/18/19 02/19/19 02/19/19 18:59 06:59 18:59 Weight 110.677 kg - Labs CBC & Chem 7: 02/19/19 17:14 02/19/19 17:14
[2019-02-19 17:40] LABS: INR 0.9 (<1.2); Prothrombin Time 9.8 sec (9.0-12.0)
[2019-02-19 17:41] LABS: Partial Thromboplastin Time 25.4 sec (22.0-30.0)
[2019-02-19 19:17] LABS: HCT 36.5 % (34.0-46.0); HGB 11.5 gm/dL (11.4-16.0); MCH 27.6 pg (25.0-35.0); MCHC 31.6 g/dL (31.0-37.0); MCV 87.4 fL (80.0-100.0); Mean Platelet Volume 6.7; Platelet Count 259 k/uL (150-450); RBC 4.17 m/uL (3.80-5.40); RDW 14.2 % (11.5-15.5); WBC 4.9 k/uL (3.8-10.6)
[2019-02-19 23:59] LABS: Hemoglobin A1C 5.6 % (4.0-6.0)
[2019-02-20 01:09] LABS: Ferritin 57.5 ng/mL (10.0-291.0)
[2019-02-20 01:42] LABS: % Iron Saturation 5.13 (12.00-45.00); African American GFR (CKD) 81.1 (60.0-200.0); Albumin 4.5 g/dL (3.80-4.90); Albumin/Globulin Ratio 1.96 (1.60-3.17); Anion Gap 9.6 mmol/L (4.00-12.00); BUN/Creat Ratio 22.22 Ratio (12.00-20.00); Calcium 8.9 mg/dL (8.7-10.3); Carbon Dioxide 24.4 mmol/L (21.6-31.8); Chol/HDL Ratio 2.37; Globulin 2.3 g/dL (1.6-3.3); LDL Cholesterol,Calculated 81.2 mg/dL (0.0-131.0); Magnesium 2.2 mg/dL (1.5-2.4); Phosphorus 3.8 mg/dL (2.4-5.1); Potassium 4.3 mmol/L (3.5-5.5); Total Bilirubin 0.4 mg/dL (0.3-1.2); Total Protein 6.8 g/dL (6.2-8.2); VLDL Calculation 15.8 mg/dL (5.00-40.00)
[2019-02-20 02:40] LABS: Folate, Serum 16.4 ng/mL
[2019-02-20 11:20] LABS: Zinc, Serum 78 ug/dL (60-130)
[2019-02-20 15:09] LABS: Vitamin A 27 ug/dL (38-106)
[2019-02-21 11:28] LABS: Vit B1(Thiamine) 41 ug/L (38-122)
[2019-02-25 18:05] LABS: Selenium 99 mcg/L (63-160)
== END | disposition home or self-care (01) ==
LOC: BARWHC3 16:04
PROVIDERS: ATTEND Surgery Plastic and Reconstructive Surgery
DX: E66.01 Morbid (severe) obesity due to excess calories (principal); Z68.39 Body mass index [BMI] 39.0-39.9, adult; M17.0 Bilateral primary osteoarthritis of knee; K21.9 Gastro-esophageal reflux disease without esophagitis; I11.9 Hypertensive heart disease without heart failure; K95.89 Other complications of other bariatric procedure; Z90.49 Acquired absence of other specified parts of digestive tract; Z83.49 Family history of other endocrine, nutritional and metabolic diseases; Z79.899 Other long term (current) drug therapy; Z88.1 Allergy status to other antibiotic agents; Z88.2 Allergy status to sulfonamides; E21.1 Secondary hyperparathyroidism, not elsewhere classified; E89.1 Postprocedural hypoinsulinemia; D50.9 Iron deficiency anemia, unspecified; K90.9 Intestinal malabsorption, unspecified; E55.9 Vitamin D deficiency, unspecified; K76.9 Liver disease, unspecified; N19 Unspecified kidney failure; K50.90 Crohn's disease, unspecified, without complications
CPT/HCPCS: 80053; 80061; 82306; 82525; 82607; 82728; 82746; 83036; 83540; 83550; 83735; 83970; 84100; 84134; 84255; 84425; 84443; 84590; 84630; 85027; 85610; 85730; 99211

== ENCOUNTER → 2019-03-26 | Outpatient (CLI) | payer BC | END | disposition home or self-care (01) | LOC: LABWHC1 15:48 | PROVIDERS: ATTEND Surgery Plastic and Reconstructive Surgery | DX: Z53.9 Procedure and treatment not carried out, unspecified reason (principal) ==

== ENCOUNTER 2019-03-31 11:50 | Inpatient (IN) | payer BC ==
--- NOTE | 2019-03-31 09:46 | P.GSHP ---
History of Present Illness H&P Date: 03/31/19 DATE OF SERVICE: 03/31/2019 CHIEF COMPLAINT: Complications from sleeve gastrectomy HISTORY OF PRESENT ILLNESS: Radha Espinal is a 58-year-old female who is status post sleeve gastrectomy, 2013. She had complications from her sleeve gastrectomy including uncontrolled gastroesophageal reflux disease. Despite hiatal hernia repair, she still has severe epigastric abdominal pain. 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 Her reflux is severe. She has undergone medical supervised weight loss over 6 months including prior and after her hiatal hernia repair. She comes in for surgical options to correct her bariatric procedure. Her highest weight was 307 pounds. At height of 5 feet 6 inches, her ideal body weight is 154 pounds. Her body mass index highest was 49.7. Today her BMI is 39.9. Lifetime weight loss is 58 pounds. Percent excess weight loss is 38 %, lifetime. PAST MEDICAL HISTORY: 1. Morbid obesity due to excess calories 2. Body mass index of 49.7, initial 3. Osteoarthritis of the knees. 4. Gastroesophageal reflux disease 5. Osteoarthritis of the lower back. 6. Hypertensive heart disease. PAST SURGICAL HISTORY: 1. Sleeve gastrectomy 2. Tubal ligation 3. Cholecystectomy 5. Varicose vein stripping 6. Hiatal hernia repair HOME MEDICATIONS: Home Medications Medication Instructions Recorded Confirmed Dexlansoprazole [Dexilant] 60 mg PO DAILY 12/18/18 12/19/18 ALLERGIES: Allergies Allergy/AdvReac Type Severity Reaction Status Date / Time clarithromycin [From Biaxin] Allergy Rash/Hives Verified 12/18/18 17:36 daptomycin Allergy MUSCLES Verified 12/18/18 17:36 "CURLED UP" Sulfa (Sulfonamide Allergy Rash/Hives Verified 12/18/18 17:36 Antibiotics) SOCIAL HISTORY: No past tobacco use. FAMILY HISTORY: No family history of ulcerative colitis disease or Crohn's disease. Family history of morbid obesity. No lupus in the family. No reports of stomach or esophageal cancer. Her grandfather had colon cancer. REVIEW OF ORGAN SYSTEMS: CONSTITUTIONAL: At height of 5 feet 6 inches, her ideal body weight is 154 pounds. Her highest weight was 307 pounds. Her body mass index highest was 49.7. HEENT: Denies any active troubles with vision or hearing. No troubles with swallowing. ENDOCRINE: No diabetes. No hypothyroidism. CARDIOVASCULAR: No reports of palpitations or heart attacks or chest pain. RESPIRATORY: Past history of pulmonary embolism including DVT GI: Denies any bright red blood per rectum. No diarrhea. Has recurrent gastroesophageal reflux disease. MUSCULOSKELETAL: Has lower back pain and joint pain. Has osteoarthritis of the knees. History of bilateral lower extremity edema. NEURO: No headaches. No seizure disorders. PSYCH: No depression. No suicidal ideation. RHEUMATOLOGIC: No lupus. No rheumatoid arthritis. HEMATOLOGIC: Denies any abnormal bleeding or bruising. Has personal history of DVTs. SKIN: No rash. No skin cancer. PHYSICAL EXAM: VITAL SIGNS: Height 5 foot 6 inches, weight 249 pounds. BMI 40.3 GENERAL: Well-developed in no acute distress. HEENT: No scleral icterus. Extraocular movements grossly intact. Hears conversational speech. No nasal drainage. NECK: Supple without lymphadenopathy. CHEST: Nonlabored respirations with equal bilateral excursions. CARDIOVASCULAR: Regular rate and regular rhythm. Distal 2+ pulses. ABDOMEN: Soft, non-distended. No peritonitis. MUSCULOSKELETAL: No clubbing, cyanosis. Gross strength 5/5 distal lower extremities. NEURO: No focal or lateralizing signs. Cranial nerves 2 through 12 grossly within normal limits. PSYCH: Appropriate affect. Alert and oriented to person, place and time. SKIN: Good skin turgor. Well perfused. STUDIES: Esophagram independently reviewed confirms severe intra-esophageal reflux disease with her sleeve gastrectomy ASSESSMENT: 1. Morbid obesity due to excess calories 2. Body mass index of 49.7 to 40.3 3. Osteoarthritis of the knees. 4. Gastroesophageal reflux disease 5. Osteoarthritis of the lower back. 6. Hypertensive heart disease. 7. Complications from sleeve gastrectomy PLAN: 1. She presents for surgical correction from complications from her sleeve gastrectomy. Conversion from a sleeve to a gastric bypass will correct her reflux disease and provide adjunct faculty for medical terminology correction of her morbid obesity. Robotic assisted approach described. 2. The [place] [facility] Data was also reviewed with benefits and risks as described. 3. An 8 page second-generation bariatric consent form was reviewed in detail including potential of bleeding, infection, leaks, adequate weight loss, nutritional deficiencies which the patient demonstrated understanding of the risks. 4. A 2 week high-protein low caloric 800 kcal diet described to address hepatomegaly. 5. Preoperative labs including complete metabolic panel and CBC with type and screen recommended. 6. DVT prophylaxis per [place] [facility]. 7. Antibiotic prophylaxis. 8. Inpatient hospitalization anticipated for more than 2 nights. 9. All questions and concerns were addressed with the patient. 10. She is elevated risks for complications including stricture and leaks as this is a conversion procedure including with a prior history of leak from her sleeve gastrectomy. 11. Post-surgical requirements including prolonged liquid diet post- operatively, close post-operative follow-ups, and weight lifting restriction of 4 pounds over 4 weeks was reviewed for which she demonstrated understanding. Past Medical History Past Medical History: Deep Vein Thrombosis (DVT), GERD/Reflux, Osteoarthritis (OA), Pneumonia, Pulmonary Embolus (PE) Additional Past Medical History / Comment(s): DVT LT KNEE, AND PE 02/2013. VARICOSE VEINS. EDEMA LT LEG. SINUS INFECTIONS, POLYPS. anemia-states had iron transfusion 2 weeks ago, History of Any Multi-Drug Resistant Organisms: None Reported Past Surgical History: Bariatric Surgery, Cholecystectomy, Hernia Repair, Tubal Ligation Additional Past Surgical History / Comment(s): VARICOSE VEINS STRIPPED. 2013 [place] STRIC SLEEVE , HIATAL HERNIA repair 2019 , sinus surgery Past Anesthesia/Blood Transfusion Reactions: Previous Problems w/ Anesthesia Additional Past Anesthesia/Blood Transfusion Reaction / Comment(s): HX WAKING UP IN SURGERY. Smoking Status: Never smoker - Past Family History Sister(s) Family Medical History: Cancer, Deep Vein Thrombosis (DVT) Brother(s) Family Medical History: Cancer Medications and Allergies Home Medications Medication Instructions Recorded Confirmed Type Dexlansoprazole [Dexilant] 60 mg PO HS 12/18/18 03/27/19 History Ergocalciferol [Vitamin D2 50,000 unit PO FR 02/20/19 03/27/19 History (DRISDOL)] FLUoxetine HCL [PROzac] 10 mg PO DAILY PRN 02/27/19 03/27/19 History Albuterol Sulfate [Proair Hfa] 1 - 2 puff INHALATION DIRECTED 03/27/19 History PRN Multivitamins, Thera [Multivitamin 1 tab PO DAILY 03/27/19 03/27/19 History (formulary)] Allergies Allergy/AdvReac Type Severity Reaction Status Date / Time clarithromycin [From Biaxin] Allergy Rash/Hives Verified 03/27/19 13:35 daptomycin Allergy MUSCLES Verified 03/27/19 13:35 "CURLED UP" Sulfa (Sulfonamide Allergy Rash/Hives Verified 03/27/19 13:35 Antibiotics)
[~2019-03-31 11:50] MED LIST changes: +LIDOCAINE 1% 20 ML VIAL (10MG/ML) FOR IV START INTRADERMA PRN; -MIDAZOLAM (PF) 2 MG/2 ML VIAL IV PRN; -ceFAZolin IN SWFI 2 GM/20 ML SYRINGE IVP ONE
[2019-03-31 13:42] LABS: Glucose,Whole Blood 79 mg/dL (75-99)
[2019-03-31] MEDS: LACTATED RINGERS 1,000 ML IV SCH (13:42)
[2019-03-31] MEDS ORDERED: KETAMINE 10 MG/ML 20 ML VIAL ONE (14:50)
[2019-03-31] MEDS ORDERED: SUCCINYLCHOLINE CHLORIDE 100 MG/5 ML SYR IV ONE (14:50)
[2019-03-31] MEDS ORDERED: PROPOFOL 10 MG/ML 20 ML VIAL IV ONE (14:50)
[2019-03-31] MEDS ORDERED: LIDOCAINE 1% INJ 10MG/ML (20 ML MDV) ONE (14:50)
[2019-03-31] MEDS ORDERED: fentaNYL (PF) 50 MCG/ML 2 ML AMP ONE (14:50)
[2019-03-31] MEDS ORDERED: NEOSTIGMINE 1 MG/ML 10 ML VIAL ONE (14:50)
[2019-03-31] MEDS ORDERED: GLYCOPYRROLATE 0.2 MG/ML 2 ML VIAL ONE (14:50)
[2019-03-31] MEDS ORDERED: MIDAZOLAM 2 MG/2 ML VIAL ONE (14:50)
[2019-03-31] MEDS ORDERED: ROCURONIUM BROMIDE 10 MG/ML 10 ML VIAL IV ONE (14:50)
[2019-03-31] MEDS ORDERED: LACTATED RINGERS 1,000 ML IV ONE ×2 (15:52→17:25)
[2019-03-31] MEDS ORDERED: BUPIVACAINE (PF) 0.25% 30 ML VIAL SQ ONE (16:06)
[2019-03-31] MEDS ORDERED: diphenhydrAMINE 50 MG/ML 1 ML VIAL IVP PRN (19:00)
[2019-03-31] MEDS ORDERED: ONDANSETRON 4 MG/2 ML VIAL IVP PRN (19:00)
[2019-03-31] MEDS ORDERED: NALOXONE 0.4 MG/ML 1 ML VIAL IV PRN (19:00)
[2019-03-31] MEDS ORDERED: fentaNYL PCA 500 MCG/50 ML BAG IV PRN (19:03)
--- NOTE | 2019-03-31 19:18 | P.OP ---
Date of Procedure: 03/31/19 Description of Procedure: DESCRIPTION OF PROCEDURE(S): SURGEON: FREDERICK BROCK MD PREOPERATIVE DIAGNOSES: 1. Morbid obesity due to excess calories 2. Body mass index of 49.7 to 40.3 3. Osteoarthritis of the knees. 4. Gastroesophageal reflux disease 5. Osteoarthritis of the lower back. 6. Hypertensive heart disease. 7. Complications from sleeve gastrectomy 8. Hiatal hernia 9. Family history of morbid obesity. 10. Depression. POSTOPERATIVE DIAGNOSES: 1. Morbid obesity due to excess calories 2. Body mass index of 49.7 to 40.3 3. Osteoarthritis of the knees. 4. Gastroesophageal reflux disease 5. Osteoarthritis of the lower back. 6. Hypertensive heart disease. 7. Complications from sleeve gastrectomy 8. Hiatal hernia 9. Family history of morbid obesity. 10. Depression. 11. Complications from sleeve gastrectomy with mechanical failure 12. Gastric stenosis 13. Ineffective esophageal dysmotility 14. Distal esophageal spasm 16. Severe perigastric adhesions. 17. Intra-abdominal adhesions from greater omentum to anterior abdominal wall, epigastrium OPERATION: 1. Robotic assisted da Nigel Xi laparoscopic extensive lysis of adhesions 1 hr 30 minutes. 2. Robotic assisted da Nigel Xi laparoscopic Tal-en-Y gastric bypass, 100cm antecolic antegastric Tal limb, with 25 mm EEA. 3. Intraoperative esophagogastrojejunoscopy with removal of foreign body using snare technique ANESTHESIA: General with local ESTIMATED BLOOD LOSS: 20 mL SPECIMENS REMOVED: None. COMPLICATIONS: NONE. INDICATIONS: Radha Espinal is a 58-year-old female who is status post sleeve gastrectomy, 2013. She had complications from her sleeve gastrectomy including uncontrolled gastroesophageal reflux disease. Despite hiatal hernia repair, she still has severe epigastric abdominal pain. 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 Her reflux is severe. She has undergone medical supervised weight loss over 6 months including prior and after her hiatal hernia repair. She comes in for surgical options to correct her bariatric procedure. Her highest weight was 307 pounds. At height of 5 feet 6 inches, her ideal body weight is 154 pounds. Her body mass index highest was 49.7. She now presents to undergo robotic assisted gastric bypass. A second-generation bariatric consent form was described in detail including the possibility of protein malnutrition, leaks, gastrojejunal stricture, venous thrombosis, need for further surgery for which she demonstrated understanding. Benefits and risks of the procedure were described at length. Informed consent was obtained. DESCRIPTION: The patient was brought into the operating room theater. She was placed on a split leg table. Preoperatively she had received Lovenox subcutaneously for DVT prophylaxis. Additionally she had undergone Peridex oral solution as an oral decontaminant. After general induction, the abdomen was prepped and draped in standard sterile fashion. Ioban draping was placed along the abdomen. A robotic da Nigel Xi system was prepped and primed. The xiphoid to umbilicus was measured of 13 cm. Proposed port sites were marked with indelible marker along the anterior axillary line bilaterally, mid clavicular line bilaterally with each port marked 10 cm from each other. The assistant engineer port was marked along the right lateral lower abdominal wall. The robotic stapler port was marked for the right midclavicular line including along the left midclavicular line. A 5 mm 0 degrees laparoscopic trocar entry was performed along the left upper quadrant. The abdomen was insufflated to 15 mmHg pressure, which she tolerated well. Diagnostic laparoscopy demonstrated no injury to bowel, viscera, or mesentery. The entire greater omentum to anterior abdominal wall was identified and adherent adding complexity to the case. Separately, her previous sleeve gastrectomy was adherent to the undersurface of the left lobe of the liver. No small bowel dilation was identified or evidence of bowel obstruction. An 8 mm camera port was placed left lateral to the umbilicus at the epigastrium, 12 cm distal to the xiphoid. Next, 12-mm robot stapler port was placed along the right mid abdomen. An 12 mm port was exchanged along the left upper quadrant. An 8 mm port was placed on the left lateral abdominal wall under direct localization. Please note that the ports were placed 18 to 20 cm away from the target anatomy of the stomach. Care was taken to check that each robotic arm was safely away from collision with the bed or the patient. At the epigastrium, a medium sized Cristian liver retractor was placed under direct visualization with the Iron Mill Recorder placed under the right shoulder of the patient. The patient was repositioned in reverse Trendelenburg position at 20-degress after lowering the bed. The robot was docked over the patient. Using grasper for arm 3, a grasper for arm 1, including vessel sealer for arm 4, the robotic system was docked and primed as described. Instruments were interchanged by the assistant engineer including endoscissors, the needle shuttle bus driver, and stapler. I had sat at the console. Next, the transverse mesocolon was reflected into the upper abdomen preparing for the jejunojejunostomy portion of the case. The ligament of Treitz was identified and measured 60 cm antegrade and marked using 2-0 Silk. The jejunum was divided at the 60 cm point using 60-mm white loads above the suture measurement. The biliopancreatic limb was held in place. The Tal limb was measured 100 cm in an antegrade fashion to avoid tension along the proposed gastrojejunal anastomosis. At 100 cm along the anti-mesenteric border of the Tal limb, a jejunojejunostomy was proposed whereby enterotomies were created along the biliopancreatic limb including the Tal limb using a Bovie cautery. A stay suture of 2-0 Silk was placed to align and create the anastomosis. The enterotomies along the anti-mesenteric borders were created followed by unidirectional fire from the patient's right side using 60 mm blue load Smart technology robotic stapler. The jejunojejunostomy was found to be hemostatic. The enterotomy was closed after horizontal mattress stitch of 2-0 silk used to elevate the enterotomy followed by closure with the robotic stapler blue loads. The jejunal limb was temporarily tacked along the left upper quadrant. Attention was now brought to the creation of the gastrojejunostomy. Severe perigastric adhesions from her sleeve gastrectomy was identified and addressed using vessel sealer. Lysis of adhesions over 1hr and 30 minutes was also performed adding complexity to her case. Once all the adhesions along the superior pole of the stomach were addressed, preparation for a gastric pouch was performed. Severe adhesions were identified along the midportion of the sleeve to the liver requiring careful dissection without gastrotomy. Along the lesser curvature of the stomach above the adherent portion of the sleeve to the liver, dissection was made along the retrogastric space to allow first firing of the robotic staple. Dense posterior gastric adhesions were identified, hence increasing the complexity of her case. A total of 2 green loads of 60mm staplers were used to divide the stomach from the previous gastric sleeve. The patient was then prepared for placement of a Orvil. The patient was Mallampati 2. A 25-mm Orvil was selected for placement by the nurse carbon printer. Despite prior attempts, the Orvil coiled into the posterior mouth and gastric pouch. The Orvil was placed using snare technique. The Orvil tubing was placed anterior to the staple line of the gastric pouch and brought out through the left inferior lateral port. The Orvil was then carefully and successfully navigated with the help of the nurse carbon printer into the gastric pouch. The sutures were identified and divided. The tubing was from the 25 mm anvil. Using aseptic technique all instruments including port sites were exchanged. As the Orvil had been placed, the blind jejunal limb was brought proximally into the upper abdomen. The transverse mesocolon was minimally bulky and undisturbed. The robot was temporarily undocked for completion of the gastrojejunostomy using an Orvil. No torsion was found upon the Tal limb. No tension was identified as the limb was brought along the upper abdomen. The blind jejunal limb was opened using Bovie cautery. The 25-mm EEA stapler was brought through the left anterior lateral port site from the left side. Please note that the trocars from the Orvil tubing, including the port, were removed to minimize contamination from the oral ian. The EEA stapler was brought through the open jejunal limb and its needle was deployed at the antimesenteric border where the anvil were mated for approximately 1 minute upon firing. The stapler was removed after irrigating the shaft of the instrument with warm normal saline. Donuts were found to be intact and thick on both sides. The da Nigel XiI robot was then re-docked. The open jejunal limb defect was closed using 60 mm blue loads after releasing any tension from the blind jejunal limb. Care was taken to avoid any long blind limb to avoid candycane syndrome. Reinforcement sutures were placed along the gastrojejunal anastomosis using 3-0 Vicryl at the 9:00 to 3 o'clock position. The Pimentel and jejunojejunostomy mesenteric defects were closed using 2-0 VLOC. I then went to the head of the bed to perform the esophagogastrojejunoscopy and a leak test. An Olympus gastroscope was passed along the posterior oropharynx which was unremarkable for any injury to the vocal cords. The scope was passed down to the proximal portion of the pouch, whereby no active bleeding was encountered. Excellent visualization of the gastrojejunostomy anastomosis, including the Tal limb was encountered with endoscopic image obtained. The anastomosis was found to be patent. The gastrointestinal tract was desufflated. No evidence of intraoperative leak was encountered as the gastric pouch and anastomosis were submerged under normal saline solution. The robot was then undocked. I then went back to the bedside of the patient, whereby with coordinated effort of the assistant engineer, irrigation was aspirated from the upper abdominal cavity. Tisseel was placed circumferentially over the anastomosis of the gastrojejunostomy. The fascial defect of the EEA stapler was closed using Brien Brice and 0 Vicryl. All instruments and pneumoperitoneum were evacuated from the abdominal cavity. The port correlating with the EEA stapler device was copiously irrigated normal saline solution and hydrogen peroxide. The rest of incisions were reapproximated using by 4-0 Monocryl in an interrupted subcuticular fashion. Local anesthetic was infiltrated along the skin for postop analgesia. Liquid glue was applied to the skin. OptiFoam dressing was placed along the EEA stapler site. At the end of the procedure, needle, sponge and instrument count had been verified correct by the surgical resident. She had tolerated the procedure well and was extubated and taken to the postanesthesia unit in stable condition. Operative Findings: 1. Severe perigastric adhesions adding 1 hr and 30 minutes to her case. 2. Bypass performed using 100 cm tal limb secondary to avoid increased tension at 150 cm. 3. Amador defect and jejunojejunostomy defect closed using 2-0 VLOC 4. Leak test negative with gastrojejunal anastomosis patent and hemostatic. 5. Gastric pouch resected using 2 green loads. 6. Console time 140 minutes
[2019-03-31] MEDS: HYDROmorphone 0.5 MG/0.5 ML SYRINGE IVP PRN ×2 (19:27→19:32)
[2019-03-31] MEDS ORDERED: ONDANSETRON 4 MG/2 ML VIAL IVP ONE (19:34)
[2019-03-31] MEDS: ALBUTEROL NEBULIZED 2.5 MG/3 ML INHALATION SCH (20:59)
[2019-03-31] MEDS: ONDANSETRON 4 MG/2 ML VIAL IVP SCH (23:59)
[2019-03-31] MEDS: METOCLOPRAMIDE 5 MG/ML 2 ML VIAL IVP SCH (23:59)
[2019-03-31] MEDS: DEXAMETHASONE SOD PHOSPHATE 4 MG/ML 1 ML VIAL IV SCH (23:59)
[2019-03-31] MEDS: HYOSCYAMINE ORAL DROPS 1.875 MG/15 ML BOTTLE PO SCH (23:59)
[2019-03-31] MEDS: 0.9% NACL WITH KCL 20 MEQ/L 1,000 ML IV SCH (23:59)
[2019-04-01] MEDS: LACTATED RINGERS 1,000 ML IV SCH (05:05)
[2019-04-01] MEDS: METOCLOPRAMIDE 5 MG/ML 2 ML VIAL IVP SCH ×4 (05:10→23:19)
[2019-04-01] MEDS: HYOSCYAMINE ORAL DROPS 1.875 MG/15 ML BOTTLE PO SCH ×4 (05:10→23:19)
[2019-04-01] MEDS: SIMETHICONE 40 MG/0.6 ML DROPS 2,000 MG/30 ML BOTTLE PO SCH ×5 (05:10→23:19)
[2019-04-01] MEDS: DEXAMETHASONE SOD PHOSPHATE 4 MG/ML 1 ML VIAL IV SCH ×4 (05:11→23:19)
[2019-04-01] MEDS: ONDANSETRON 4 MG/2 ML VIAL IVP SCH ×4 (05:11→23:19)
[2019-04-01] MEDS: 0.9% NACL WITH KCL 20 MEQ/L 1,000 ML IV SCH ×3 (05:13→23:19)
[2019-04-01 07:10] LABS: Basophils % (A) 0 %; Eosinophils % (A) 0 %; HCT 35.6 % (34.0-46.0); HGB 11.7 gm/dL (11.4-16.0); Hypochromasia Slight; Lymphocytes # (A) 0.3 k/uL (1.0-4.8); Lymphocytes % (A) 3 %; MCH 30.3 pg (25.0-35.0); MCV 91.9 fL (80.0-100.0); Mean Platelet Volume 7.9; Monocytes # (A) 0.2 k/uL (0-1.0); Monocytes % (A) 3 %; Neutrophils # (A) 7.6 k/uL (1.3-7.7); Neutrophils % (A) 93 %; Platelet Count 141 k/uL (150-450); RBC 3.87 m/uL (3.80-5.40); RDW 14.8 % (11.5-15.5); WBC 8.2 k/uL (3.8-10.6)
[2019-04-01] MEDS: ALBUTEROL NEBULIZED 2.5 MG/3 ML INHALATION SCH ×4 (07:20→20:59)
[2019-04-01 07:24] LABS: African American GFR (CKD) >90 (>60 ml/min/1.73 sqM); Anion Gap 6 mmol/L; Blood Urea Nitrogen 17 mg/dL (7-17); Calcium 8.7 mg/dL (8.4-10.2); Carbon Dioxide 26 mmol/L (22-30); Chloride 110 mmol/L (98-107); Non-African American GFR(CKD) >90 (>60 ml/min/1.73 sqM); Phosphorus 3.4 mg/dL (2.5-4.5); Potassium 4.5 mmol/L (3.5-5.1); Sodium 142 mmol/L (137-145)
[2019-04-01] MEDS: ENOXAPARIN 40 MG/0.4 ML SYRINGE SQ SCH (07:55)
[2019-04-01] MEDS: PANTOPRAZOLE 40 MG/10 ML VIAL IV SCH (07:56)
[2019-04-01] MEDS: SODIUM CHLORIDE 0.9% 1,000 ML IV SCH ×2 (09:54→12:41)
[2019-04-01] MEDS ORDERED: ACETAMINOPHEN ORAL SUSP (PEDS) 3,840 MG/120 ML BOTTLE PO PRN (11:06)
--- NOTE | 2019-04-01 11:09 | P.PN ---
<Palak Paml Peggy - Last Filed: 04/01/19 11:06> Subjective Progress Note Date: 04/01/19 CHIEF COMPLAINT: Morbid obesity HISTORY OF PRESENT ILLNESS: Patient is status post robotic laparoscopic Bruce-en-Y gastric bypass and lysis of adhesions. Postoperative day #1. Patient examined at the bedside. She reports her pain is tolerable. Reports using her fentanyl STAFFING CLERK very sparingly. She is tolerating liquid diet. Denies heartburn. Denies nausea. Vital signs are stable. She is afebrile. PHYSICAL EXAM: VITAL SIGNS: Currently stable. GENERAL: Well-developed in no acute distress. HEENT: No sclera icterus. Extraocular movements grossly intact. Moist buccal mucosa. Head is atraumatic, normocephalic. Hears conversational speech. No nasal drainage. NECK: Supple without lymphadenopathy. CHEST: Non-labored respirations and equal bilateral excursions. CARDIOVASCULAR: Regular rate with regular rhythm. Palpable 2+ radial pulses. ABDOMEN: Soft. Nondistended. Surgical site clean dry and intact without drainage. MUSCULOSKELETAL: No clubbing, cyanosis or edema. NEUROLOGIC: No focal or lateralizing signs. Cranial nerves II through XII grossly intact. PSYCH: Appropriate affect. Alert and oriented to person, place and time. SKIN: Well perfused. Good skin turgor. ASSESSMENT: 1. Morbid obesity due to excess calories 2. Body mass index of 49.7 to 40.3 3. Osteoarthritis of the knees. 4. Gastroesophageal reflux disease 5. Osteoarthritis of the lower back. 6. Hypertensive heart disease. 7. Complications from sleeve gastrectomy 8. Hiatal hernia 9. Family history of morbid obesity. 10. Depression. 11. Complications from sleeve gastrectomy with mechanical failure 12. Gastric stenosis 13. Ineffective esophageal dysmotility 14. Distal esophageal spasm 16. Severe perigastric adhesions. 17. Intra-abdominal adhesions from greater omentum to anterior abdominal wall, epigastrium PLAN: Pain control. Fentanyl STAFFING CLERK if pain is severe. Otherwise, pain control with liquid Tylenol 2 L fluid bolus Discontinue Baxter catheter Continue clear liquid diet Incentive spirometry 10 times an hour Increase activity as tolerated Anticipate discharge home tomorrow Nurse practitioner note has been reviewed by physician. Signing provider agrees with the documented findings, assessment, and plan of care. Objective - Vital Signs Vital signs: Vital Signs Temp 98.7 F 04/01/19 07:00 Pulse 70 04/01/19 07:33 Resp 18 04/01/19 07:20 BP 135/80 04/01/19 07:00 Pulse Ox 95 04/01/19 07:20 Intake & Output 03/31/19 04/01/19 04/01/19 18:59 06:59 18:59 Intake Total 2850 1500 Output Total 220 450 200 Balance 2630 1050 -200 Weight 107.3 kg 107.3 kg Intake: IV 2850 0 Intake, IV Titration 1500 Amount 0.9% NaCl with KCl 20 Meq 1500 /l 1,000 ml @ 100 mls/hr IV .Q10H MONI Rx#: [id number] Output: Urine 200 450 200 Uretheral (Baxter) 200 Estimated Blood Loss 20 Other: Voiding Method Indwelling Catheter - Labs CBC & Chem 7: 04/01/19 06:10 04/01/19 06:10 Labs: Abnormal Lab Results - Last 24 Hours (Table) 04/01/19 04/01/19 Range/Units 06:10 06:10 Plt Count 141 L (150-450) k/uL Lymphocytes # 0.3 L (1.0-4.8) k/uL Chloride 110 H (98-107) mmol/L <Yenifer Maurer N - Last Filed: 04/02/19 08:37> Subjective Patient clinically stable. She is completed very high risk for vaginal surgery. Anticipated discharge tomorrow. Postoperative pain medication described. Objective - Vital Signs Vital signs: Vital Signs Temp 97.9 F 04/02/19 07:00 Pulse 67 04/02/19 07:00 Resp 17 04/02/19 07:00 BP 113/71 04/02/19 07:00 Pulse Ox 95 04/02/19 07:00 Intake & Output 04/01/19 04/02/19 04/02/19 18:59 06:59 18:59 Intake Total 150 Output Total 400 200 Balance -400 -50 Weight 107.3 kg Intake: Oral 150 Output: Urine 400 200 Uretheral (Baxter) 400 Other: # Voids 3 0 - Labs CBC & Chem 7: 04/01/19 06:10 04/01/19 06:10
[2019-04-01 11:36] VITALS: BMI 39.3
[2019-04-02] MEDS: LACTATED RINGERS 1,000 ML IV SCH (05:40)
[2019-04-02] MEDS: METOCLOPRAMIDE 5 MG/ML 2 ML VIAL IVP SCH ×2 (05:42→11:48)
[2019-04-02] MEDS: ONDANSETRON 4 MG/2 ML VIAL IVP SCH ×2 (05:42→11:48)
[2019-04-02] MEDS: DEXAMETHASONE SOD PHOSPHATE 4 MG/ML 1 ML VIAL IV SCH ×2 (05:42→11:48)
[2019-04-02] MEDS: HYOSCYAMINE ORAL DROPS 1.875 MG/15 ML BOTTLE PO SCH ×2 (05:42→11:48)
[2019-04-02] MEDS: SIMETHICONE 40 MG/0.6 ML DROPS 2,000 MG/30 ML BOTTLE PO SCH ×2 (05:42→11:48)
[2019-04-02] MEDS: 0.9% NACL WITH KCL 20 MEQ/L 1,000 ML IV SCH (05:43)
[2019-04-02] MEDS: ENOXAPARIN 40 MG/0.4 ML SYRINGE SQ SCH (07:37)
[2019-04-02] MEDS: PANTOPRAZOLE 40 MG/10 ML VIAL IV SCH (07:37)
[2019-04-02] MEDS ORDERED: BISACODYL 5 MG TABLET.DR PO PRN (08:00)
[2019-04-02 08:27] VITALS: BP 113/71; RESP 17; TEMP 97.9
[2019-04-02] MEDS: ALBUTEROL NEBULIZED 2.5 MG/3 ML INHALATION SCH ×2 (08:57→12:40)
[2019-04-02 08:58] VITALS: PULSE 72
--- NOTE | 2019-04-02 13:17 | P.DS ---
Providers Date of admission: 03/31/19 13:01 Expected date of discharge: 04/02/19 Attending physician: Yenifer Maurer Primary care physician: Amaury [facility] Course: 58 year old female who underwent robotic laparoscopic Bruce-en-Y gastric bypass and lysis of adhesions with Dr. Maurer. Patient is doing well postoperatively without any immediate complications rate she is tolerating liquid diet without nausea or vomiting. Pain controlled on oral medications. Vital signs have been stable. She is stable for discharge home today. Please see EMR for further hospital course details. Discharge Diagnosis: 1. Morbid obesity due to excess calories 2. Body mass index of 49.7 to 40.3 3. Osteoarthritis of the knees. 4. Gastroesophageal reflux disease 5. Osteoarthritis of the lower back. 6. Hypertensive heart disease. 7. Complications from sleeve gastrectomy 8. Hiatal hernia 9. Family history of morbid obesity. 10. Depression. 11. Complications from sleeve gastrectomy with mechanical failure 12. Gastric stenosis 13. Ineffective esophageal dysmotility 14. Distal esophageal spasm 16. Severe perigastric adhesions. 17. Intra-abdominal adhesions from greater omentum to anterior abdominal wall, epigastrium Nurse practitioner note has been reviewed by physician. Signing provider agrees with the documented findings, assessment, and plan of care. Patient Condition at Discharge: Stable Plan - Discharge Summary Discharge Rx Participant: Yes New Discharge Prescriptions: New Bisacodyl [Dulcolax] 5 mg PO DAILY PRN #10 tablet.dr PRN Reason: Constipation Simethicone 40 mg/0.6 ml Drops [Mylicon Drops] 40 mg PO PCHS PRN #30 ml PRN Reason: gas Omeprazole 40 mg PO DAILY #30 cap Ondansetron Odt [Zofran Odt] 4 mg PO Q8HR PRN #9 tab PRN Reason: Nausea Acetaminophen Oral Susp [Tylenol Oral Susp] 650 mg PO Q4H PRN #500 ml PRN Reason: Pain Continue FLUoxetine HCL [PROzac] 10 mg PO DAILY PRN PRN Reason: depression Albuterol Sulfate [Proair Hfa] 1 - 2 puff INHALATION DIRECTED PRN PRN Reason: Shortness Of Breath Discontinued Dexlansoprazole [Dexilant] 60 mg PO HS Ergocalciferol [Vitamin D2 (DRISDOL)] 50,000 unit PO FR Multivitamins, Thera [Multivitamin (formulary)] 1 tab PO DAILY Discharge Medication List FLUoxetine HCL [PROzac] 10 mg PO DAILY PRN 02/27/19 [History] Albuterol Sulfate [Proair Hfa] 1 - 2 puff INHALATION DIRECTED PRN 03/27/19 [History] Acetaminophen Oral Susp [Tylenol Oral Susp] 650 mg PO Q4H PRN #500 ml 04/02/19 [Rx] Bisacodyl [Dulcolax] 5 mg PO DAILY PRN #10 tablet. 04/02/19 [Rx] Omeprazole 40 mg PO DAILY #30 cap 04/02/19 [Rx] Ondansetron Odt [Zofran Odt] 4 mg PO Q8HR PRN #9 tab 04/02/19 [Rx] Simethicone 40 mg/0.6 ml Drops [Mylicon Drops] 40 mg PO PCHS PRN #30 ml 04/02/19 [Rx] Follow up Appointment(s)/Referral(s): Amaury Patel MD [Primary Care Provider] - 04/11/19 10:30 am [place] [place], [place] [NON-STAFF] - 04/04/19 10:00 am Patient Instructions/Handouts: Nutrition after Bariatric Surgery (GEN), Bruce-en-Y Gastric Bypass (DC) Activity/Diet/Wound Care/Special Instructions: NO lifting over 4 pounds in 4 weeks, May 03. May shower. Dressings to be removed by your doctor in the office. Drink 64 oz of fluid daily. Start protein shakes on Sunday. No straws or carbonated beverages. Liquid diet only. Sugar content should be less than 6 g to avoid dumping syndrome. Take MOM for constipation. CRUSH, OPEN, OR CUT TABLETS LARGER THAN A SIZE OF A TIC TAC Discharge Disposition: HOME SELF-CARE
== END 2019-04-02 14:17 | disposition home or self-care (01) | DRG 327 ==
LOC: 2ORMAIN 13:01 → 4SSUR 19:54
PROVIDERS: ADMIT Surgery Plastic and Reconstructive Surgery; ATTEND Surgery Plastic and Reconstructive Surgery
PROC: 0DNW4ZZ Release Peritoneum, Percutaneous Endoscopic Approach (ICD-10-PCS; 2019-03-31)
PROC: 0DJ08ZZ Inspection of Upper Intestinal Tract, Via Natural or Artificial Opening Endoscopic (ICD-10-PCS; 2019-03-31)
PROC: 0D164ZA Bypass Stomach to Jejunum, Percutaneous Endoscopic Approach (ICD-10-PCS; principal; 2019-03-31 14:40)
DX: K95.89 Other complications of other bariatric procedure (principal); Z68.41 Body mass index [BMI] 40.0-44.9, adult; E66.01 Morbid (severe) obesity due to excess calories; I11.9 Hypertensive heart disease without heart failure; F32.9 Major depressive disorder, single episode, unspecified; K21.9 Gastro-esophageal reflux disease without esophagitis; K22.4 Dyskinesia of esophagus; K44.9 Diaphragmatic hernia without obstruction or gangrene; K66.0 Peritoneal adhesions (postprocedural) (postinfection); M17.0 Bilateral primary osteoarthritis of knee; M47.9 Spondylosis, unspecified; D64.9 Anemia, unspecified; Z79.899 Other long term (current) drug therapy; Z86.711 Personal history of pulmonary embolism; Z90.49 Acquired absence of other specified parts of digestive tract; Z98.51 Tubal ligation status; Z88.1 Allergy status to other antibiotic agents; Z88.2 Allergy status to sulfonamides; Z86.718 Personal history of other venous thrombosis and embolism; Z87.01 Personal history of pneumonia (recurrent); Z80.0 Family history of malignant neoplasm of digestive organs; Z82.49 Family history of ischemic heart disease and other diseases of the circulatory system; Y84.8 Other medical procedures as the cause of abnormal reaction of the patient, or of later complication, without mention of misadventure at the time of the procedure
CPT/HCPCS: 80051; 82310; 82565; 83735; 84100; 84520; 85025; 86850; 86900; 86901; 94640; 94760

== ENCOUNTER → 2019-04-18 | Outpatient (CLI) | payer BC ==
[2019-04-18] MEDS: SODIUM CHLORIDE 0.9% 1,000 ML IV SCH ×2 (08:17→09:21)
[2019-04-18 08:25] VITALS: RESP 16; TEMP 98.1
[2019-04-18 10:34] VITALS: BP 108/67; PULSE 76; BMI 37.9
--- NOTE | 2019-04-18 11:10 | P.PN ---
Subjective Progress Note Date: 04/18/19 Patient reports generalized fatigue. No nausea or vomiting. No reflux. No abdominal pain. Overall dehydration. Agree with IV fluid hydration. Follow-up nurse visit in one week. Objective - Vital Signs Vital signs: Vital Signs Temp 98.1 F 04/18/19 10:33 Pulse 76 04/18/19 10:33 Resp 16 04/18/19 08:21 BP 108/67 04/18/19 10:33 Pulse Ox Intake & Output 04/17/19 04/18/19 04/18/19 18:59 06:59 18:59 Weight 103.419 kg
== END | disposition home or self-care (01) ==
LOC: PROCWHC3 07:57
PROVIDERS: ATTEND Surgery Plastic and Reconstructive Surgery
DX: E86.0 Dehydration (principal)
CPT/HCPCS: 96360; 96361; 99211

== ENCOUNTER → 2019-04-22 | Outpatient (CLI) | payer BC ==
[2019-04-22 12:39] LABS: HCT 35.6 % (34.0-46.0); HGB 11.6 gm/dL (11.4-16.0); MCH 28.8 pg (25.0-35.0); MCHC 32.5 g/dL (31.0-37.0); MCV 88.5 fL (80.0-100.0); Mean Platelet Volume 6.9; Platelet Count 262 k/uL (150-450); RBC 4.03 m/uL (3.80-5.40); RDW 14.1 % (11.5-15.5); WBC 8.3 k/uL (3.8-10.6)
[2019-04-22 12:48] VITALS: BP 105/71; PULSE 81; RESP 16; TEMP 98.3
[2019-04-22] MEDS: SODIUM CHLORIDE 0.9% 1,000 ML IV SCH ×2 (12:58→13:58)
[2019-04-22 13:02] LABS: Partial Thromboplastin Time 26.4 sec (22.0-30.0)
[2019-04-22 14:25] LABS: ALT 24 U/L (4-34); AST 37 U/L (14-36); African American GFR (CKD) >90 (>60 ml/min/1.73 sqM); Albumin 3.5 g/dL (3.5-5.0); Alkaline Phosphatase 108 U/L (38-126); Anion Gap 7 mmol/L; Blood Urea Nitrogen 14 mg/dL (7-17); Calcium 8.9 mg/dL (8.4-10.2); Carbon Dioxide 29 mmol/L (22-30); Chloride 103 mmol/L (98-107); Cholesterol 148 mg/dL (<200); Glucose 98 mg/dL (74-99); HDL Cholesterol 31 mg/dL (40-60); LDL Cholesterol,Calculated 102 mg/dL (0-99); Magnesium 2.2 mg/dL (1.6-2.3); Non-African American GFR(CKD) >90 (>60 ml/min/1.73 sqM); Phosphorus 3.9 mg/dL (2.5-4.5); Potassium 3.8 mmol/L (3.5-5.1); Sodium 139 mmol/L (137-145); Total Bilirubin 0.8 mg/dL (0.2-1.3); Total Protein 6.8 g/dL (6.3-8.2); Triglycerides 76 mg/dL (<150)
[2019-04-22 18:57] LABS: % Iron Saturation 6.86 (12.00-45.00); Ferritin 765.5 ng/mL (10.0-291.0); Iron 14 ug/dL (50-170); Prealbumin <5.0 mg/dL (18.0-42.0); Total Iron Binding Capacity 204 ug/dL (228-460)
[2019-04-22 23:07] LABS: Hemoglobin A1C 5.4 % (4.0-6.0)
[2019-04-23 12:58] LABS: Zinc, Serum 76 ug/dL (60-130)
[2019-04-24 08:24] LABS: Vit B1(Thiamine) 47 ug/L (38-122)
[2019-04-24 14:38] LABS: Vitamin A <13 ug/dL (38-106)
[2019-04-25 00:39] LABS: Selenium 126 mcg/L (63-160)
== END | disposition home or self-care (01) ==
LOC: PROCWHC3 11:18
PROVIDERS: ATTEND Surgery Plastic and Reconstructive Surgery
DX: E86.0 Dehydration (principal); E66.01 Morbid (severe) obesity due to excess calories; E21.1 Secondary hyperparathyroidism, not elsewhere classified; E89.1 Postprocedural hypoinsulinemia; D50.9 Iron deficiency anemia, unspecified; K90.9 Intestinal malabsorption, unspecified; E55.9 Vitamin D deficiency, unspecified; K74.1 Hepatic sclerosis; N19 Unspecified kidney failure; K50.90 Crohn's disease, unspecified, without complications
CPT/HCPCS: 36415; 80053; 80061; 82306; 82525; 82607; 82728; 82746; 83036; 83540; 83550; 83735; 83970; 84100; 84134; 84255; 84425; 84443; 84590; 84630; 85027; 85610; 85730; 96360; 96361

== ENCOUNTER → 2019-04-30 | Outpatient (CLI) | payer BC ==
[2019-04-30 14:07] VITALS: BP 112/73; PULSE 67; TEMP 97.8; BMI 35.4
== END | disposition home or self-care (01) ==
LOC: BARWHC3 13:12
PROVIDERS: ATTEND Surgery Plastic and Reconstructive Surgery
DX: E66.01 Morbid (severe) obesity due to excess calories (principal); Z68.35 Body mass index [BMI] 35.0-35.9, adult; M17.0 Bilateral primary osteoarthritis of knee; M47.816 Spondylosis without myelopathy or radiculopathy, lumbar region; I11.9 Hypertensive heart disease without heart failure; Z98.84 Bariatric surgery status
CPT/HCPCS: 97803; 99211

== ENCOUNTER → 2019-12-12 | Outpatient (CLI) | payer BC ==
[2019-12-12 08:03] LABS: HCT 36.6 % (34.0-46.0); MCH 30.3 pg (25.0-35.0); MCHC 32.8 g/dL (31.0-37.0); MCV 92.3 fL (80.0-100.0); Mean Platelet Volume 7.5; Platelet Count 169 k/uL (150-450); RBC 3.96 m/uL (3.80-5.40); RDW 12.9 % (11.5-15.5); WBC 3.1 k/uL (3.8-10.6)
[2019-12-12 10:48] LABS: % Iron Saturation 23.73 (12.00-45.00); African American GFR (CKD) 92.9 (60.0-200.0); Albumin/Globulin Ratio 1.74 (1.60-3.17); Anion Gap 4.9 mmol/L (4.00-12.00); BUN/Creat Ratio 26.25 Ratio (12.00-20.00); Calcium 9.3 mg/dL (8.7-10.3); Carbon Dioxide 29.1 mmol/L (21.6-31.8); Chol/HDL Ratio 2.73; Globulin 2.3 g/dL (1.6-3.3); LDL Cholesterol,Calculated 88.6 mg/dL (0.0-131.0); Magnesium 2.2 mg/dL (1.5-2.4); Non-African American GFR(CKD) 80.1 (60.0-200.0); Phosphorus 4.3 mg/dL (2.4-5.1); Total Bilirubin 0.5 mg/dL (0.3-1.2); Total Protein 6.3 g/dL (6.2-8.2); VLDL Calculation 13.4 mg/dL (5.00-40.00)
[2019-12-12 10:57] LABS: Ferritin 69.4 ng/mL (10.0-291.0)
[2019-12-12 11:09] LABS: Folate, Serum 16.2 ng/mL
[2019-12-12 16:02] LABS: Hemoglobin A1C 5.7 % (4.0-6.0)
[2019-12-12 17:50] LABS: INR 1.02 (0.90-1.11); Partial Thromboplastin Time 29.6 sec (24.7-29.9); Prothrombin Time 10.9 sec (9.9-11.9)
== END | disposition home or self-care (01) ==
LOC: LABWHC1 07:11
PROVIDERS: ATTEND Surgery Plastic and Reconstructive Surgery
DX: E21.1 Secondary hyperparathyroidism, not elsewhere classified (principal); D50.9 Iron deficiency anemia, unspecified; K90.9 Intestinal malabsorption, unspecified; E55.9 Vitamin D deficiency, unspecified; K74.1 Hepatic sclerosis; N19 Unspecified kidney failure; K50.90 Crohn's disease, unspecified, without complications; E89.1 Postprocedural hypoinsulinemia; E66.01 Morbid (severe) obesity due to excess calories
CPT/HCPCS: 36415; 80053; 80061; 82306; 82525; 82607; 82728; 82746; 83036; 83540; 83550; 83735; 83970; 84100; 84134; 84255; 84425; 84443; 84590; 84630; 85027; 85610; 85730

== ENCOUNTER 2020-01-21 09:30 | Day surgery (SDC) | payer BC ==
[2020-01-19 17:42] VITALS: BMI 37.4
--- NOTE | 2020-01-21 06:27 | P.GSHP ---
History of Present Illness H&P Date: 01/21/20 CHIEF COMPLAINT: GERD HISTORY OF PRESENT ILLNESS: The patient is a 59-year-old female who presents reports gastroesophageal reflux disease. Upper endoscopy was offered for further evaluation and management. PAST MEDICAL HISTORY: Please see list. PAST SURGICAL HISTORY: Please see list. MEDICATIONS: Please see list. ALLERGIES: Please see list. SOCIAL HISTORY: No illicit drug use FAMILY HISTORY: No reports of Crohn disease or ulcerative colitis. REVIEW OF ORGAN SYSTEMS: CONSTITUTIONAL: No reports of fevers or chills. GI: Denies any blood in stools or constipation. PHYSICAL EXAM: VITAL SIGNS: Stable GENERAL: Well-developed and pleasant in no acute distress. HEENT: No scleral icterus. Extraocular movements grossly intact. Moist buccal mucosa. NECK: Supple without lymphadenopathy. CHEST: Unlabored respirations. Equal bilateral excursions. CARDIOVASCULAR: Regular rate and rhythm. Distal 2+ pulses. ABDOMEN: Soft, nondistended. MUSCULOSKELETAL: No clubbing, cyanosis, or edema. ASSESSMENT: 1. Gastroesophageal reflux disease PLAN: 1. Recommend proceeding with an upper endoscopy Past Medical History Past Medical History: Deep Vein Thrombosis (DVT), GERD/Reflux, Pulmonary Embolus (PE) Additional Past Medical History / Comment(s): DVT LT KNEE, AND PE 02/2013. VARICOSE VEINS. EDEMA LT LEG. SINUS INFECTIONS, sinus POLYPS., worsening acid reflux History of Any Multi-Drug Resistant Organisms: None Reported Past Surgical History: Bariatric Surgery, Cholecystectomy, Hernia Repair, Tubal Ligation Additional Past Surgical History / Comment(s): VARICOSE VEINS STRIPPED. 2012 GASTRIC SLEEVE (CURRENT SURGEON DR. BROCK), hiatal hernia repair 07-15-18, gastric bypass 03-31-19 Past Anesthesia/Blood Transfusion Reactions: Previous Problems w/ Anesthesia Additional Past Anesthesia/Blood Transfusion Reaction / Comment(s): HX WAKING UP IN SURGERY. Smoking Status: Never smoker - Past Family History Sister(s) Family Medical History: Cancer, Deep Vein Thrombosis (DVT) Brother(s) Family Medical History: Cancer Medications and Allergies Home Medications Medication Instructions Recorded Confirmed Type FLUoxetine HCL [PROzac] 10 mg PO DAILY PRN 02/27/19 01/19/20 History Albuterol Sulfate [Proair Hfa] 1 - 2 puff INHALATION DIRECTED 03/27/19 01/19/20 History PRN Dexlansoprazole [Dexilant] 60 mg PO DAILY 04/24/19 01/19/20 History Multivitamins, Thera [Multivitamin 1 tab PO DAILY 12/17/19 01/19/20 History (formulary)] Allergies Allergy/AdvReac Type Severity Reaction Status Date / Time clarithromycin [From Biaxin] Allergy Rash/Hives Verified 01/19/20 17:27 daptomycin Allergy MUSCLES Verified 01/19/20 17:27 "CURLED UP" Sulfa (Sulfonamide Allergy Rash/Hives Verified 01/19/20 17:27 Antibiotics)
[~2020-01-21 09:30] MED LIST changes: -CHLORHEXIDINE GLUCONATE 15 ML CUP MUCOUS MEM ONE; -DEXAMETHASONE SOD PHOSPHATE 10 MG/ML 1 ML VIAL IV ONE; -ENOXAPARIN 40 MG/0.4 ML SYRINGE SQ STA; +LACTATED RINGERS 1,000 ML IV SCH; +LIDOCAINE 1% (10MG/ML) FOR IV START INTRADERMA PRN; -LIDOCAINE 1% 20 ML VIAL (10MG/ML) FOR IV START INTRADERMA PRN; -ONDANSETRON 4 MG/2 ML VIAL IVP ONE; -PANTOPRAZOLE 40 MG/10 ML VIAL IV STA; -SCOPOLAMINE 1.5MG/72HR PATCH TRANSDERM ONE
[2020-01-21 09:52] VITALS: RESP 16; TEMP 98.1
[2020-01-21] MEDS ORDERED: LIDOCAINE 1% INJ 10MG/ML (20 ML MDV) ONE (10:14)
[2020-01-21] MEDS ORDERED: PROPOFOL 10 MG/ML 20 ML VIAL IV ONE (10:14)
--- NOTE | 2020-01-21 10:31 | P.PCN ---
Date of Procedure: 01/21/20 Description of Procedure: PREOPERATIVE DIAGNOSIS: Dysphagia. Gastroesophageal reflux disease Morbid obesity. POSTOPERATIVE DIAGNOSIS: Dysphagia. Gastroesophageal reflux disease Morbid obesity. Esophageal dysmotility Esophageal stricture Gastrojejunal stricture without chronic ulcer without perforation OPERATION: Esophagogastrojejunoscopy with balloon dilatation of gastric stricture and esophageal stricture, 20 mm. SURGEON: Yenifer Maurer MD ANESTHESIA: MAC. INDICATIONS: The patient is a 59-year-old female who presents with a history of dysphagia and gastroesophageal reflux disease. Benefits and risks of the procedure were described. Informed consent was obtained. DESCRIPTION: The patient was brought into the endoscopy suite and laid in the left lateral decubitus position. After a timeout was confirmed, the procedure was initiated. An Olympus gastroscope was passed along the posterior oropharynx down to the distal esophagus where the squamocolumnar junction was unremarkable. The gastric pouch was entered. A gastrojejunal stricture of 12 mm was found as the adult gastroscope was 9.5 mm in size. A [employer] balloon dilator was placed through the scope. Final insufflation up to 20 mm was performed with a total of 2 minutes for gastric anastomosis including distal esophageal stricture. The scope was advanced up to 60 cm from the incisors into the Bruce limb. The mucosa of the gastrojejunal anastomosis was intact. No chronic gastrojejunal marginal ulcer was encountered. No full-thickness injury was encountered. The GI tract was desufflated. The patient tolerated the procedure well. FINDINGS: Squamocolumnar junction unremarkable Stricture of approximately 15 mm encountered of the gastric anastomosis and 50 mm of the distal esophagus No chronic gastrojejunal ulceration encountered. Successful balloon dilatation to 20 mm. RECOMMENDATIONS: Upper endoscopy as needed Barium swallow for esophageal dysmotility assessment Manometry for esophageal motility assessment Plan - Discharge Summary Discharge Rx Participant: No New Discharge Prescriptions: Continue FLUoxetine HCL [PROzac] 10 mg PO DAILY PRN PRN Reason: depression Albuterol Sulfate [Proair Hfa] 1 - 2 puff INHALATION DIRECTED PRN PRN Reason: Shortness Of Breath Multivitamins, Thera [Multivitamin (formulary)] 1 tab PO DAILY Discontinued Dexlansoprazole [Dexilant] 60 mg PO DAILY Discharge Medication List FLUoxetine HCL [PROzac] 10 mg PO DAILY PRN 02/27/19 [History] Albuterol Sulfate [Proair Hfa] 1 - 2 puff INHALATION DIRECTED PRN 03/27/19 [History] Multivitamins, Thera [Multivitamin (formulary)] 1 tab PO DAILY 12/17/19 [History] [facility] [place] [facility] [place] [facility] Patient Instructions/Handouts: Esophageal Dilation (DC) Activity/Diet/Wound Care/Special Instructions: Diet as tolerated. Discharge Disposition: HOME SELF-CARE
[2020-01-21 10:45] VITALS: BP 133/80; PULSE 69
== END 2020-01-21 11:09 | disposition home or self-care (01) ==
LOC: ORWHC2ENDO 09:30
PROVIDERS: ATTEND Surgery Plastic and Reconstructive Surgery
DX: K22.2 Esophageal obstruction (principal); K22.4 Dyskinesia of esophagus; K91.89 Other postprocedural complications and disorders of digestive system; K31.89 Other diseases of stomach and duodenum; K21.9 Gastro-esophageal reflux disease without esophagitis; E66.01 Morbid (severe) obesity due to excess calories; I83.90 Asymptomatic varicose veins of unspecified lower extremity; Z88.2 Allergy status to sulfonamides; Z88.1 Allergy status to other antibiotic agents; Z79.899 Other long term (current) drug therapy; Z86.718 Personal history of other venous thrombosis and embolism; Z86.711 Personal history of pulmonary embolism; Z98.84 Bariatric surgery status; Z90.49 Acquired absence of other specified parts of digestive tract; Z98.51 Tubal ligation status; Z98.890 Other specified postprocedural states; Z82.49 Family history of ischemic heart disease and other diseases of the circulatory system; Z80.9 Family history of malignant neoplasm, unspecified; Z68.39 Body mass index [BMI] 39.0-39.9, adult
CPT/HCPCS: 43245; 43249; J2001; J2704; C1726

== ENCOUNTER → 2020-02-04 | Outpatient (CLI) | payer BC ==
[2020-02-04 16:53] VITALS: BP 125/73; PULSE 64; TEMP 98.1; BMI 37.9
--- NOTE | 2020-02-04 17:29 | P.PN ---
Subjective Progress Note Date: 02/04/20 DATE OF SERVICE: 02/04/2020 CHIEF COMPLAINT: Complications from sleeve gastrectomy HISTORY OF PRESENT ILLNESS: Radha Espinal is a 59-year-old female who is status post conversion from sleeve gastrectomy to gastric bypass secondary to complications from her sleeve gastrectomy, 03/31/2019. She is 10 months out. She comes in with recurrent gastrosesophageal reflux 1 week after her EGD. She reports that her symptoms improve with dexilant. She is status post upper endoscopy with dilation. Her highest weight was 307 pounds. Today she comes in weighing 235 pounds and unchanged, 1 months ago. At height of 5 feet 6 inches, her ideal body weight is 154 pounds. Her body mass index highest was 49.7. Today her BMI is 37.9. Lifetime weight loss is 72 pounds. Percent excess weight loss lifetime is 47% PHYSICAL EXAM: VITAL SIGNS: Height 5 foot 6 inches, weight 235 pounds. BMI 37.9 Vital Signs Temp 98.1 F 02/04/20 16:46 Pulse 64 02/04/20 16:46 Resp BP 125/73 02/04/20 16:46 Pulse Ox GENERAL: Well-developed in no acute distress. HEENT: No scleral icterus. Extraocular movements grossly intact. Hears conversational speech. No nasal drainage. NECK: Supple without lymphadenopathy. CHEST: Nonlabored respirations with equal bilateral excursions. CARDIOVASCULAR: Regular rate and regular rhythm. Distal 2+ pulses. ABDOMEN: Soft, non-distended. MUSCULOSKELETAL: No clubbing, cyanosis. NEURO: No focal or lateralizing signs. Cranial nerves 2 through 12 grossly within normal limits. PSYCH: Appropriate affect. Alert and oriented to person, place and time. SKIN: Good skin turgor. Well perfused. ASSESSMENT: 1. Morbid obesity due to excess calories 2. Body mass index of 49.7 to 37.9 3. Osteoarthritis of the knees. 4. Gastroesophageal reflux disease 5. Osteoarthritis of the lower back. 6. Hypertensive heart disease. 7. Complications from sleeve gastrectomy 8. Status post sleeve gastrectomy to gastric bypass 9. Zinc deficiency. PLAN: 1. She comes in with recurrent reflux 1 week after EGD. 2. Continue with dexilant for symptoms. 3. Recommend esophagram Objective - Vital Signs Vital signs: Vital Signs Temp 98.1 F 02/04/20 16:46 Pulse 64 02/04/20 16:46 Resp BP 125/73 02/04/20 16:46 Pulse Ox Intake & Output 02/03/20 02/04/20 02/04/20 18:59 06:59 18:59 Weight 106.594 kg
== END | disposition home or self-care (01) ==
LOC: BARWHC3 16:29
PROVIDERS: ATTEND Surgery Plastic and Reconstructive Surgery
DX: E66.01 Morbid (severe) obesity due to excess calories (principal); Z68.37 Body mass index [BMI] 37.0-37.9, adult; M17.0 Bilateral primary osteoarthritis of knee; K21.9 Gastro-esophageal reflux disease without esophagitis; M47.816 Spondylosis without myelopathy or radiculopathy, lumbar region; I11.9 Hypertensive heart disease without heart failure; E60 Dietary zinc deficiency; Z98.84 Bariatric surgery status
CPT/HCPCS: 99211

== ENCOUNTER → 2020-02-19 | Outpatient (CLI) | payer BC ==
--- NOTE | 2020-02-19 08:58 | FL ---
SINGLE CONTRAST BARIUM SWALLOW: CLINICAL HISTORY: 59-year-old female R13.10, GERD, unspecified dysphasia. Patient with history of ga stric sleeve in 2013, converted to a Bruce-en-Y gastric bypass in 2019. Patient also with hiatal herni a repair in 2019. Balloon dilatation of the esophagus one month ago. TECHNIQUE: Single contrast exam performed with thin barium. Total fluoroscopy time: 2 minutes 5 seconds Total images: 42 COMPARISON: 07/26/2018 FINDINGS: The patient swallowed oral contrast without difficulty or delay. Esophageal peristalsis and motility are within normal limits. There is anterior endplate spondylosis C5-C6 and C6/C7 impressing mildly o n the posterior wall of the cervical esophagus. No fixed narrowing is identified. There is prompt passage of contrast from the esophagus into the surgerized small portion of the stoma ch and then promptly across the gastrojejunostomy. No abnormal narrowing is identified. LIN imaging with Valsalva shows movement of the stomach above the diaphragm. Supine Valsalva further confirms movement of the stomach above the level of the diaphragm and [id number] gastroesophage al reflux is visualized. IMPRESSION: 1. Status post Bruce-en-Y gastric bypass. No stricture or obstruction. 2. However, Valsalva maneuver shows partial movement of the small stomach above the level of the diap hragm (image 34 and 38) suggesting a residual or recurrent small hiatal hernia. Valsalva during supin e imaging shows [id number] gastroesophageal reflux.
== END | disposition home or self-care (01) ==
LOC: RADFLMAIN 08:03
PROVIDERS: ATTEND Surgery Plastic and Reconstructive Surgery
DX: K21.9 Gastro-esophageal reflux disease without esophagitis (principal); Z98.84 Bariatric surgery status
CPT/HCPCS: 74220

== ENCOUNTER → 2020-02-25 | Outpatient (CLI) | payer BC ==
--- NOTE | 2020-02-25 17:29 | P.PN ---
Subjective Progress Note Date: 02/25/20 DATE OF SERVICE: 02/25/2020 CHIEF COMPLAINT: Complications from sleeve gastrectomy HISTORY OF PRESENT ILLNESS: Radha Espinal is a 59-year-old female who is status post conversion from sleeve gastrectomy to gastric bypass secondary to complications from her sleeve gastrectomy, 03/31/2019. She is 11 months out. She comes in with recurrent gastroesophageal reflux disease. She reports burning sensation of the epigastrium. Her highest weight was 307 pounds. Today she comes in weighing 235 pounds and unchanged, 1 months ago. At height of 5 feet 6 inches, her ideal body weight is 154 pounds. Her body mass index highest was 49.7. Today her BMI is 37.9. Lifetime weight loss is 72 pounds. Percent excess weight loss lifetime is 47% PHYSICAL EXAM: VITAL SIGNS: Height 5 foot 6 inches, weight 235 pounds. BMI 37.9 Vital Signs Temp 97.9 F 02/25/20 16:30 Pulse 64 02/25/20 16:30 Resp BP 129/80 02/25/20 16:30 Pulse Ox GENERAL: Well-developed in no acute distress. HEENT: No scleral icterus. Extraocular movements grossly intact. Hears conversational speech. No nasal drainage. NECK: Supple without lymphadenopathy. CHEST: Nonlabored respirations with equal bilateral excursions. CARDIOVASCULAR: Regular rate and regular rhythm. Distal 2+ pulses. ABDOMEN: Soft, non-distended. MUSCULOSKELETAL: No clubbing, cyanosis. NEURO: No focal or lateralizing signs. Cranial nerves 2 through 12 grossly within normal limits. PSYCH: Appropriate affect. Alert and oriented to person, place and time. SKIN: Good skin turgor. Well perfused. STUDIES: Esophogram independently reviewed with recurrent small sliding hiatal hernia. ASSESSMENT: 1. Morbid obesity due to excess calories 2. Body mass index of 49.7 to 37.9 3. Osteoarthritis of the knees. 4. Gastroesophageal reflux disease 5. Osteoarthritis of the lower back. 6. Hypertensive heart disease. 7. Complications from sleeve gastrectomy 8. Status post sleeve gastrectomy to gastric bypass 9. Zinc deficiency. 10. Recurrent hiatal hernia PLAN: 1. Recommend hiatal hernia repair but she is elevated risk for complications. 2. Her symptoms have recurred following her weight regain. She will need 2 week high protein low carb diet. 3. Lifting restriction of 4 pounds described for post op.
[2020-02-26 11:30] VITALS: BP 129/80; PULSE 64; TEMP 97.9; BMI 37.9
== END | disposition home or self-care (01) ==
LOC: BARWHC3 16:29
PROVIDERS: ATTEND Surgery Plastic and Reconstructive Surgery
DX: E66.01 Morbid (severe) obesity due to excess calories (principal); M17.0 Bilateral primary osteoarthritis of knee; K21.9 Gastro-esophageal reflux disease without esophagitis; I11.9 Hypertensive heart disease without heart failure; K95.89 Other complications of other bariatric procedure; K44.9 Diaphragmatic hernia without obstruction or gangrene; E60 Dietary zinc deficiency; Z68.37 Body mass index [BMI] 37.0-37.9, adult; Z98.84 Bariatric surgery status
CPT/HCPCS: 99211

== ENCOUNTER → 2020-06-11 | Outpatient (CLI) | payer BC ==
--- NOTE | 2020-06-15 09:04 | MM ---
Reason for exam: screening (asymptomatic). Last mammogram was performed 1 year and 11 months ago. History: Patient is postmenopausal. Family history of breast cancer in aunt. Benign stereotactic core biopsy of the left breast, January 15, 2003. Core biopsy of the left breast. Took hormonal contraceptives for 15 years. Physical Findings: A clinical breast exam by your physician is recommended on an annual basis and results should be correlated with mammographic findings. MG Screening Mammo w CAD Bilateral CC and MLO view(s) were taken. Prior study comparison: July 04, 2018, bilateral MG screening mammo w CAD. August 01, 2016, bilateral MG screening mammo w CAD. There are scattered fibroglandular densities. Previous mammotome biopsy in the left breast. There is chronic nodularity bilaterally. No significant changes when compared with prior studies. ASSESSMENT: Benign, BI-RAD 2 RECOMMENDATION: Routine screening mammogram of both breasts in 1 year.
== END | disposition home or self-care (01) ==
LOC: RADMAMWWP 16:36
PROVIDERS: ATTEND Internal Medicine
DX: Z12.31 Encounter for screening mammogram for malignant neoplasm of breast (principal)
CPT/HCPCS: 77067

== ENCOUNTER → 2021-09-21 | Outpatient (CLI) | payer MEDICAID ==
[2021-09-21 18:07] LABS: ALT 35 U/L (8-44); AST 39 U/L (13-35); African American GFR (CKD) 108.4 (60.0-200.0); Albumin 4.2 g/dL (3.8-4.9); Albumin/Globulin Ratio 1.68 (1.60-3.17); Alkaline Phosphatase 98 U/L (41-126); BUN/Creat Ratio 22.71 Ratio (12.00-20.00); Blood Urea Nitrogen 15.9 mg/dL (9.0-27.0); Calcium 9.1 mg/dL (8.7-10.3); Carbon Dioxide 26.4 mmol/L (20.0-27.5); Chloride 105 mmol/L (96-109); Chol/HDL Ratio 2.84 Ratio; Globulin 2.5 g/dL (1.6-3.3); Glucose 88 mg/dL (70-110); LDL Cholesterol,Calculated 98.5 mg/dL (0.0-131.0); Non-African American GFR(CKD) 93.5 (60.0-200.0); Potassium 4.5 mmol/L (3.5-5.5); Sodium 142 mmol/L (135-145); Total Protein 6.7 g/dL (6.2-8.2); VLDL Calculation 11.62 mg/dL (5.00-40.00)
== END | disposition home or self-care (01) ==
LOC: LABWHC1 07:17
PROVIDERS: ATTEND Family Medicine
DX: Z13.6 Encounter for screening for cardiovascular disorders (principal); E16.2 Hypoglycemia, unspecified; E55.9 Vitamin D deficiency, unspecified
CPT/HCPCS: 36415; 80053; 80061; 82306; 83036; 83525; 84681

== ENCOUNTER → 2022-08-07 | Outpatient (CLI) | payer MEDICAID | END | disposition home or self-care (01) | LOC: LABWHC1 07:35 | PROVIDERS: ATTEND Nurse Practitioner | DX: E16.1 Other hypoglycemia (principal) | CPT/HCPCS: 36415; 83036; 83525; 84681 ==

== ENCOUNTER → 2023-05-10 | Outpatient (CLI) | payer MEDICAID ==
--- NOTE | 2023-05-14 09:17 | MM ---
Reason for Exam: Screening (asymptomatic). Last mammogram was performed 2 year(s) and 11 month(s) ago. Patient History: Menarche at age 11. First Full-Term at age 22. Postmenopausal. Patient has history of breast feeding. Patient used Hormonal Contraceptives for 15 years. Core Biopsy on the Left side. 01/15/2003, Benign Stereotactic Core Biopsy on the left side. Maternal aunt had breast cancer. Risk Values: Shanika 5 year model risk: 2.1%. NCI Lifetime model risk: 8.9%. Prior Study Comparison: 08/01/2016 Bilateral Screening Mammogram, [facility]. 07/04/2018 Bilateral Screening Mammogram, [facility]. 06/11/2020 Bilateral Screening Mammogram, [facility]. Tissue Density: The breast tissue is heterogeneously dense. This may lower the sensitivity of mammography. Findings: Analyzed By CAD. There is no suspicious group of microcalcifications or new suspicious mass in either breast. Overall Assessment: Negative, BI-RAD 1 Management: Screening Mammogram of both breasts in 1 year. . Patient should continue monthly self-breast exams. A clinical breast exam by your physician is recommended on an annual basis. This exam should not preclude additional follow-up of suspicious palpable abnormalities. Note on Shanika scores and lifetime risk: 1. A Shanika score greater than 3% is considered moderate risk. If this is the case, consider specialist referral to assess eligibility for a risk reducing agent. 2. If overall lifetime risk for the development of breast cancer is 20% or higher, the patient may qualify for future screening with alternating mammogram and breast MRI. Electronically signed and approved by: Isaak Jung M.D. Radiologis
== END | disposition home or self-care (01) ==
LOC: RADMAMWWP 16:36
PROVIDERS: ATTEND Family Medicine
DX: Z12.31 Encounter for screening mammogram for malignant neoplasm of breast (principal); Z80.3 Family history of malignant neoplasm of breast; Z78.0 Asymptomatic menopausal state
CPT/HCPCS: 77063; 77067

== ENCOUNTER → 2024-06-06 | Outpatient (CLI) | payer MEDICAID ==
[2024-06-06 11:02] LABS: ALT 22 U/L (8-44); AST 29 U/L (13-35); Albumin 4.1 g/dL (3.8-4.9); Albumin/Globulin Ratio 1.46 Ratio (1.60-3.17); Alkaline Phosphatase 100 U/L (41-126); BUN/Creat Ratio 28.57 Ratio (12.00-20.00); Calcium 8.9 mg/dL (8.7-10.3); Carbon Dioxide 25.9 mmol/L (21.6-31.8); Chloride 105 mmol/L (96-109); Globulin 2.8 g/dL (1.6-3.3); Glucose 89 mg/dL (70-110); Potassium 4.4 mmol/L (3.5-5.5); Sodium 140 mmol/L (135-145); Total Bilirubin 0.3 mg/dL (0.3-1.2); Total Protein 6.9 g/dL (6.2-8.2)
[2024-06-07 01:51] LABS: C-Peptide 2.54 ng/mL (0.81-3.85)
== END | disposition home or self-care (01) ==
LOC: LABWHC1 07:01
PROVIDERS: ATTEND Family Medicine
DX: E16.2 Hypoglycemia, unspecified (principal)
CPT/HCPCS: 36415; 80053; 83036; 83525; 84681

== ENCOUNTER → 2024-07-23 | Outpatient (CLI) | payer MEDICAID ==
--- NOTE | 2024-07-23 09:04 | MM ---
Reason for Exam: Screening (asymptomatic). Last mammogram was performed 1 year(s) and 3 month(s) ago. Patient History: Menarche at age 11. First Full-Term at age 22. Postmenopausal. Patient has history of breast feeding. Patient used Hormonal Contraceptives for 15 years. Core Biopsy on the Left side. 01/15/2003, Benign Stereotactic Core Biopsy on the left side. Maternal aunt had breast cancer. Risk Values: Shanika 5 year model risk: 2.2%. NCI Lifetime model risk: 8.6%. Prior Study Comparison: 07/04/2018 Bilateral Screening Mammogram, [facility]. 06/11/2020 Bilateral Screening Mammogram, [facility]. 05/10/2023 Bilateral MG 3D screening mammo w/cad, [facility]. Tissue Density: There are scattered areas of fibroglandular density. Findings: Analyzed By CAD. Chronic nodularity on both sides. Microclip left breast from prior biopsy. There is no suspicious group of microcalcifications or new suspicious mass in either breast. Overall Assessment: Benign, BI-RAD 2 Management: Screening Mammogram of both breasts in 1 year. Patient should continue monthly self-breast exams. A clinical breast exam by your physician is recommended on an annual basis. This exam should not preclude additional follow-up of suspicious palpable abnormalities. Note on Shanika scores and lifetime risk: 1. A Shanika score greater than 3% is considered moderate risk. If this is the case, consider specialist referral to assess eligibility for a risk reducing agent. 2. If overall lifetime risk for the development of breast cancer is 20% or higher, the patient may qualify for future screening with alternating mammogram and breast MRI. [facility], , 07/23/2024 9:01 AM. Electronically signed and approved by: Herman Becerra M.D. Radiologist
== END | disposition home or self-care (01) ==
LOC: RADMAMWWP 07:26
PROVIDERS: ATTEND Family Medicine
DX: Z12.31 Encounter for screening mammogram for malignant neoplasm of breast (principal); R92.323 Mammographic fibroglandular density, bilateral breasts; Z78.0 Asymptomatic menopausal state; Z92.0 Personal history of contraception; Z80.3 Family history of malignant neoplasm of breast
CPT/HCPCS: 77063; 77067